=== PATIENT | female | born 1950 | race Hispanic/Latino ===

== ENCOUNTER → 2018-02-27 | Outpatient (CLI) | payer MEDICARE, OTHER | LOC: MAMMO 07:36 | PROVIDERS: ATTEND Internal Medicine Endocrinology, Diabetes & Metabolism | DX: Z12.31 Encounter for screening mammogram for malignant neoplasm of breast (principal) | CPT/HCPCS: 77067 ==

== ENCOUNTER → 2019-03-07 | Outpatient (CLI) | payer MEDICARE, OTHER | LOC: MAMMO 09:36 | PROVIDERS: ATTEND Internal Medicine Endocrinology, Diabetes & Metabolism | DX: Z12.31 Encounter for screening mammogram for malignant neoplasm of breast (principal) | CPT/HCPCS: 77067 ==

== ENCOUNTER → 2019-04-05 | Outpatient (CLI) | payer MEDICARE, OTHER ==
--- NOTE | 2019-04-05 14:04 | Diagnostic Imaging Report ---
Exam: Bone mineral density study. History: 68-year-old postmenopausal female. Comparison: 02/23/2017. Discussion: Evaluation of the left hip and lumbar spine was performed utilizing DEXA Hologic bone densitometer. The study is technically adequate. The patient's fracture risk is compared to an age-matched control. Lumbar spine total bone mineral density: 0.866 gm/cm2, T-score is -1.6, Z-score is 0.5. Increased 4.2% compared to prior exam. Left femoral neck bone mineral density: 0.617 g/cm2, T-score is -2.2, Z-score is -0.4. Decreased 1.3% compared to prior exam. Impression: Bone mineralization by WHO Classification using T score is osteopenic, fracture risk is moderate. <T score: NL = -1 or higher Osteopenia = -1 to -2.5 Osteoporosis = -2.5 or lower Z score: < - 1.5 concerning for path> Recommendations: Medical evaluation for secondary causes of low bone mineral density may be appropriate. Correlate clinically for the necessity and timing of the next bone mineral density study. National Osteoporosis Foundation recommendations: Initiate therapy to reduce fracture risk in postmenopausal women with -BMD t-scores below -2 by central DXA with no risk factors -BMD t-scores below -1.5 by central DXA with one or more risk factors (first deg relative with hip fracture, prior personal fracture, low body weight, smoking) -A prior vertebral or hip fracture AACE (Clinical Endocrinology) recommends treating the following: Postmenopausal women who have osteoporosis as diagnosed by fragility fractures or t scores -2.5 or below Postmenopausal women who have risk factors (including fh of hip fracture, low body weight, smoking, risk of falling, high bone turnover, advancing age) and borderline low BMD T scores of -1.5 or below Adequate intake of calcium (at least 1200mg/day) and vitamin D (400-800 IU/day). Regular weight bearing and muscle - strengthening exercises Avoid smoking and excessive alcohol Signed by: Miah Ross on 04/05/2019 2:00 PM
--- NOTE | 2019-04-08 09:00 | Diagnostic Imaging Report ---
#[id number] - MGDXBIL #BILATERAL DIGITAL DIAGNOSTIC MAMMOGRAM WITH SPOT COMPRESSION: 04/05/2019 Comparison is made to exams dated: 03/07/2019 mammogram and 02/27/2018 mammogram - [facility]. Current study contains 7 films. There are scattered fibroglandular elements in both breasts. Additional views demonstrate no underlying abnormality. No significant masses, calcifications, or other findings are seen in either breast. IMPRESSION: BENIGN There is no mammographic evidence of malignancy. A 1 year screening mammogram is recommended. The patient will be notified by letter of the results. BECK BELTRAN M.D. ct/penrad:04/05/2019 15:37:26 Vortex Operator: Josie OSHEA(Sandro)(M), [facility] letter sent: Normal Exam Mammogram BI-RADS: 2 Benign
== END ==
LOC: DX 11:39
PROVIDERS: ATTEND Internal Medicine Endocrinology, Diabetes & Metabolism
DX: N63.10 Unspecified lump in the right breast, unspecified quadrant (principal); N95.9 Unspecified menopausal and perimenopausal disorder
CPT/HCPCS: 77066; 77080

== ENCOUNTER → 2020-04-10 | Outpatient (CLI) | payer MEDICARE, OTHER | LOC: MAMMO 10:14 | PROVIDERS: ATTEND Internal Medicine Endocrinology, Diabetes & Metabolism | DX: Z12.31 Encounter for screening mammogram for malignant neoplasm of breast (principal) | CPT/HCPCS: 77067 ==

== ENCOUNTER → 2020-05-28 | Outpatient (CLI) | payer MEDICARE, OTHER ==
--- NOTE | 2020-05-28 10:29 | Diagnostic Imaging Report ---
Exam: Bone mineral density study. History: Osteopenia. Comparison: 04/05/2019 Discussion: Evaluation of the left hip and lumbar spine was performed utilizing DEXA Hologic bone densitometer. The study is technically adequate. Left hip total bone mineral density: 0.661gm/cm2, T-score is -2.2, Z-score is -0.6. Left hip femoral neck bone mineral density: 0.631gm/cm2, T-score is -2.1, Z-score is -0.2. Lumbar spine total bone mineral density:0.845gm/cm2, T-score is-1.8, Z-score is 0.4. Impression: 1. Osteopenia of the left hip, fracture risk is increased 2. Osteopenia of the lumbar spine, fracture risk is increased The BMD change versus baseline is 1.0% and the BMD change versus previous 0.8% . Least significant change (LSC) for bone mineral density as provided by pool table operator is 0.023 g/cm2 for lumbar spine and 0.027 g/cm2 for total hip. 10 -year fracture risk per WHO Fracture Risk Assessment Tool (FRAX) for: Major osteoporotic fracture is 6.6% Hip fracture is 1.4% The above fracture probability is calculated for an untreated patient. Fracture probably may be lower if the patient has received treatment. All treatment decisions require clinical judgment and consideration of individual patient factors, including patient preferences, comorbidities, previous drug use and risk factors not captured in the FRAX model (e.g. frailty, falls, vitamin D deficiency, increased bone turnover, interval significant decline in BMD). The patient's fracture risk is compared to an age-matched control. Medical evaluation for secondary causes of low bone bone mineral density may be appropriate. Correlate clinically for the necessity and timing of the next bone mineral density study. Signed by: Dr. Thaddeus Smith M.D. on 05/28/2020 10:26 AM
--- NOTE | 2020-05-29 15:38 | Diagnostic Imaging Report ---
#[id number] - USBRECOMLT ULTRASOUND OF THE LEFT BREAST : 05/28/2020 Comparison is made to exams dated: 05/28/2020 mammogram and 04/10/2020 mammogram - [facility]. Color flow and real-time ultrasound were performed on the left breast. Carter scale images of the real-time examination were reviewed. There is a 1.6 cm irregular mass with a microlobulated margin in the left breast at 2 o'clock anterior depth. This irregular mass is hypoechoic with internal echoes. There also is a 2.1 cm lymph node in the left axillary tail. This lymph node is hypoechoic. IMPRESSION: SUSPICIOUS OF MALIGNANCY - FOLLOW-UP RECOMMENDED The 1.6 cm irregular mass in the left breast at 2 o'clock anterior depth is consistent with a solid mass and is suspicious of malignancy. The 2.1 cm lymph node in the left axillary tail is consistent with an enlarged lymph node and is suspicious of malignancy. A phone call was made to the physician's office. The patient has been or will be contacted. SIM king/morelia:05/29/2020 12:02:50 Heating Element Winder: Mac Knight [facility], [facility] letter sent: Biopsy Required Ultrasound BI-RADS: 4 Suspicious abnormality
--- NOTE | 2020-05-29 15:38 | Diagnostic Imaging Report ---
#[id number] - MGDXLT #UNILATERAL LEFT DIGITAL DIAGNOSTIC MAMMOGRAM WITH SPOT COMPRESSION: 05/28/2020 Comparison is made to exams dated: 04/10/2020 mammogram, 04/05/2019 mammogram, 03/07/2019 mammogram and 02/27/2018 mammogram - [facility]. There are scattered fibroglandular elements in the left breast. There is a 1.2 cm irregular high density mass with an obscured margin in the left breast at 1 o'clock middle depth. No other significant masses or calcifications are seen in the breast. IMPRESSION: INCOMPLETE: NEEDS ADDITIONAL IMAGING EVALUATION The 1.2 cm irregular high density mass in the left breast is indeterminate. Ultrasound will be performed during the same visit for further evaluation. Follow-up with ACR/ACS guidelines. SIM RAMIREZ M.D. kw/:05/29/2020 11:58:25 Infant Room Teacher: Josie OSHEA(Sandro)(M), [facility] Mammogram BI-RADS: 0 Indeterminate
== END ==
LOC: MAMMO 09:16
PROVIDERS: ATTEND Internal Medicine Endocrinology, Diabetes & Metabolism
DX: Z13.820 Encounter for screening for osteoporosis (principal); N63.20 Unspecified lump in the left breast, unspecified quadrant
CPT/HCPCS: 77080

== ENCOUNTER → 2020-06-10 | Outpatient (CLI) | payer MEDICARE, OTHER | LOC: US 14:07 | PROVIDERS: ATTEND Internal Medicine Endocrinology, Diabetes & Metabolism | DX: N63.20 Unspecified lump in the left breast, unspecified quadrant (principal) | CPT/HCPCS: 88305 ==

== ENCOUNTER 2023-02-11 23:30 | Inpatient (IN) | payer MEDICARE, OTHER ==
[~2023-02-11] VITALS: Ht 167.6 cm; Wt 52.3 kg
[2023-02-12] VITALS (40 sets, daily range): BP systolic 114–147; BP diastolic 61–98; PULSE 75–102; RESP 16–25; TEMP 97.7–98.8; O2SAT 96–100
[2023-02-12 00:30] LABS: BASOPHILS # (AUTO) 0.1 (0.0-0.1); BASOPHILS % 0.7 % (0.0-1.0); EOSINOPHILS # (AUTO) 1.4 (0.0-0.4); EOSINOPHILS % 16.6 % (0.0-6.0); HEMATOCRIT 31.3 % (34.2-44.1); HEMOGLOBIN 9.4 g/dL (12.0-16.0); LYMPHOCYTES # (AUTO) 1.7 (1.0-3.2); MEAN CORPUSCULAR HEMOGLOBIN 31.4 pg (28-32); MEAN CORPUSCULAR VOLUME 104.7 fL (81-99); MONOCYTES # (AUTO) 0.5 (0.2-0.8); MONOCYTES % 5.6 % (4.4-11.3); NEUTROPHILS # (AUTO) 4.9 (2.1-6.9); NEUTROPHILS % 56.7 % (38.7-80.0); PLATELET COUNT 218 x10e3/uL (140-360); RED BLOOD COUNT 2.99 x10e6/uL (3.6-5.1); RED CELL DISTRIBUTION WIDTH 22.9 % (11.7-14.4)
[2023-02-12] MEDS ORDERED: SODIUM CHLORIDE 0.9% 1000ML 1,000 ML IV ONE (00:30)
[2023-02-12 00:50] LABS: ALBUMIN 2.4 g/dL (3.5-5.0); ALBUMIN/GLOBULIN RATIO 0.4 (0.8-2.0); ANION GAP 11.9 mmol/L (8-16); CREATININE, SERUM 1.33 mg/dL (0.57-1.11)
[2023-02-12 00:52] LABS: POTASSIUM 6.9 mmol/L (3.5-5.1)
[2023-02-12] MEDS ORDERED: ALBUTEROL SULF 0.083% NEB SOLN 3 ML NEB NEB STA (00:54)
[2023-02-12] MEDS ORDERED: SODIUM BICARBONATE 8.4% 50 ML VIAL IV STA (00:54)
[2023-02-12] MEDS ORDERED: DEXTROSE 50% SYRINGE 50 ML IV STA (00:54)
[2023-02-12] MEDS ORDERED: INSULIN REGULAR, HUMAN 100 UNIT/1 ML IV ONE (01:00)
[2023-02-12] MEDS ORDERED: FUROSEMIDE INJ 10 MG/ML 4 ML VIAL IV ONE (01:00)
[2023-02-12] MEDS ORDERED: CALCIUM GLUCONATE 10% INJ 9.3 MEQ in SODIUM CHLORIDE 0.9% 100 ML IV ONE (01:00)
[2023-02-12] MEDS ORDERED: SODIUM BICARBONATE 8.4% SYRING 100 ML ONE (01:09)
[2023-02-12] MEDS ORDERED: CALCIUM GLUC 1 G/50 ML NACL 50 ML IV ONE ×2 (01:09→01:22)
[2023-02-12] MEDS ORDERED: ONDANSETRON HCL INJ 2MG/ML 2ML 2 MG/ML VIAL IV PRN (01:30)
[2023-02-12] MEDS ORDERED: SODIUM CHLORIDE 0.9% 1000ML 1,000 ML IV SCH (01:30)
[2023-02-12] MEDS ORDERED: ACETAMINOP325 MG/10 PEG (02:42)
[2023-02-12] MEDS ORDERED: heparin SQ (02:42)
[2023-02-12] MEDS ORDERED: AMLODIPINE BESYL5 MG PEG (02:42)
[2023-02-12] MEDS ORDERED: CLONIDINE HCL0.1 MG PEG (02:42)
[2023-02-12] MEDS ORDERED: GABAPENTIN100 MG PEG (02:42)
[2023-02-12] MEDS ORDERED: LANSOPRAZOLE30 MG PEG (02:42)
[2023-02-12] MEDS ORDERED: LEVOTHYROXINE112 MCG PEG (02:42)
[2023-02-12] MEDS ORDERED: IPRAT-ALBUT 0.5-3 ML NEB (02:42)
[2023-02-12] MEDS ORDERED: ALTOPREV40 MG PEG (02:43)
[2023-02-12] MEDS ORDERED: SEROQUEL100 MG PEG (02:47)
[2023-02-12] MEDS ORDERED: ULTRAM 50MG50 MG PEG (02:47)
[2023-02-12] MEDS ORDERED: PROCRIT10000 UNIT INJ (02:47)
[2023-02-12] MEDS ORDERED: SIMVASTATIN20 MG PEG (02:47)
[2023-02-12] MEDS ORDERED: SEROQUEL50 MG PEG (02:47)
[2023-02-12] MEDS ORDERED: METOPROLOL TART50 MG PEG (02:47)
[2023-02-12 04:57] LABS: BASOPHILS # (AUTO) 0.1 (0.0-0.1); BASOPHILS % 0.7 % (0.0-1.0); EOSINOPHILS # (AUTO) 1.3 (0.0-0.4); EOSINOPHILS % 16.4 % (0.0-6.0); HEMATOCRIT 26.5 % (34.2-44.1); HEMOGLOBIN 8.3 g/dL (12.0-16.0); LYMPHOCYTES # (AUTO) 1.4 (1.0-3.2); LYMPHOCYTES % 18.6 % (18.0-39.1); MEAN CORPUSCULAR HEMOGLOBIN 31.4 pg (28-32); MEAN CORPUSCULAR HGB CONC 31.3 g/dL (31-35); MEAN CORPUSCULAR VOLUME 100.4 fL (81-99); MONOCYTES # (AUTO) 0.6 (0.2-0.8); MONOCYTES % 7.6 % (4.4-11.3); NEUTROPHILS # (AUTO) 4.3 (2.1-6.9); NEUTROPHILS % 55.8 % (38.7-80.0); PLATELET COUNT 219 x10e3/uL (140-360); RED BLOOD COUNT 2.64 x10e6/uL (3.6-5.1); RED CELL DISTRIBUTION WIDTH 22.3 % (11.7-14.4)
[2023-02-12 05:25] LABS: ALBUMIN 2.2 g/dL (3.5-5.0); ALBUMIN/GLOBULIN RATIO 0.4 (0.8-2.0); ANION GAP 11.6 mmol/L (8-16); CALCIUM 8.8 mg/dL (8.4-10.2); CREATININE, SERUM 1.06 mg/dL (0.57-1.11); POTASSIUM 5.6 mmol/L (3.5-5.1)
[2023-02-12] MEDS ORDERED: ALBUTEROL/IPRATROPIUM 3 ML NEB NEB PRN (07:45)
[2023-02-12] MEDS ORDERED: CLONIDINE HCL 0.1 MG TAB PEG PRN (07:45)
[2023-02-12] MEDS: LEVOTHYROXINE SODIUM 112 MCG TAB PEG SCH (08:54)
[2023-02-12] MEDS: GABAPENTIN 100 MG CAP PEG SCH ×2 (08:54→17:16)
[2023-02-12] MEDS: AMLODIPINE BESYLATE 5 MG TAB PEG SCH ×2 (08:54→17:16)
[2023-02-12 09:02] LABS: PROTHROMBIN TIME 13.7 seconds (11.9-14.5)
[2023-02-12 09:03] LABS: PARTIAL THROMBOPLASTIN TIME 32.1 seconds (23.8-35.5)
[2023-02-12] MEDS: SODIUM BICARBONATE 8.4% 150 ML in DEXTROSE 5% 1,000 ML IV SCH ×2 (10:17→17:16)
[2023-02-12 15:49] LABS: CALCIUM 8.4 mg/dL (8.4-10.2); CREATININE, SERUM 1.09 mg/dL (0.57-1.11)
[2023-02-12] MEDS ORDERED: SOD POLYSTYRENE SULFONATE SUSP 15 GM/60 ML BTL PO ONE (16:15)
[2023-02-12] MEDS: SIMVASTATIN 20 MG TAB PEG SCH (20:19)
[2023-02-12] MEDS ORDERED: MUPIROCIN 2% OINT 22 GM TUBE TOP SCH (21:00)
[2023-02-12] MEDS ORDERED: SODIUM CHLORIDE 0.9% 100 ML ONE (22:10)
[2023-02-13] VITALS (36 sets, daily range): BP systolic 117–151; BP diastolic 60–75; PULSE 80–105; RESP 14–24; TEMP 97.8–98.8; O2SAT 93–100
[2023-02-13] MEDS ORDERED: SOD POLYSTYRENE SULFONATE SUSP 15 GM/60 ML BTL PO ONE (06:00)
[2023-02-13 06:53] LABS: BASOPHILS % 0.6 % (0.0-1.0); EOSINOPHILS % 13.5 % (0.0-6.0); HEMATOCRIT 28.1 % (34.2-44.1); HEMOGLOBIN 8.6 g/dL (12.0-16.0); LYMPHOCYTES # (AUTO) 1.1 (1.0-3.2); LYMPHOCYTES % 15.6 % (18.0-39.1); MEAN CORPUSCULAR HEMOGLOBIN 31.7 pg (28-32); MEAN CORPUSCULAR HGB CONC 30.6 g/dL (31-35); MEAN CORPUSCULAR VOLUME 103.7 fL (81-99); MONOCYTES # (AUTO) 0.5 (0.2-0.8); MONOCYTES % 7.3 % (4.4-11.3); NEUTROPHILS # (AUTO) 4.5 (2.1-6.9); NEUTROPHILS % 62.3 % (38.7-80.0); PLATELET COUNT 201 x10e3/uL (140-360); RED BLOOD COUNT 2.71 x10e6/uL (3.6-5.1); RED CELL DISTRIBUTION WIDTH 22.8 % (11.7-14.4)
[2023-02-13 07:20] LABS: ALBUMIN 2.1 g/dL (3.5-5.0); ALBUMIN/GLOBULIN RATIO 0.4 (0.8-2.0); ANION GAP 11.7 mmol/L (8-16); CALCIUM 8.3 mg/dL (8.4-10.2); CREATININE, SERUM 1.08 mg/dL (0.57-1.11); POTASSIUM 5.7 mmol/L (3.5-5.1)
[2023-02-13] MEDS: LEVOTHYROXINE SODIUM 112 MCG TAB PEG SCH (09:53)
[2023-02-13] MEDS: AMLODIPINE BESYLATE 5 MG TAB PEG SCH ×2 (09:53→16:49)
[2023-02-13] MEDS: GABAPENTIN 100 MG CAP PEG SCH ×2 (09:54→16:48)
[2023-02-13] MEDS: SODIUM BICARBONATE 8.4% 150 ML in DEXTROSE 5% 1,000 ML IV SCH ×2 (09:55→11:36)
[2023-02-13] MEDS ORDERED: FUROSEMIDE INJ 10 MG/ML 2 ML VIAL IV ONE (15:00)
[2023-02-13 15:44] LABS: ABG HCO3 25 mmol/L (22-26); ABG PCO2 37 mmHg (35-45); ABG PH 7.45 (7.35-7.45); ABG PO2 85 mmHg (80-105); ABG TCO2 26
[2023-02-13] MEDS: HEPARIN SOD (PORCINE) 5,000 UNIT/ML VIAL SC SCH ×2 (16:31→20:12)
[2023-02-13] MEDS ORDERED: SODIUM BICARBONATE 8.4% 150 ML in DEXTROSE 5% 1,000 ML IV SCH (19:00)
[2023-02-13] MEDS: SODIUM CHLORIDE 0.9% 1000ML 1,000 ML IV SCH (19:13)
[2023-02-13] MEDS: SIMVASTATIN 20 MG TAB PEG SCH (20:07)
[2023-02-14] VITALS (19 sets, daily range): BP systolic 122–153; BP diastolic 60–110; PULSE 81–103; RESP 15–24; TEMP 98–98.6; O2SAT 92–100
[2023-02-14] MEDS: SODIUM CHLORIDE 0.9% 1000ML 1,000 ML IV SCH ×2 (05:35→20:57)
[2023-02-14 06:48] LABS: BASOPHILS % 0.5 % (0.0-1.0); EOSINOPHILS # (AUTO) 1.1 (0.0-0.4); EOSINOPHILS % 13.5 % (0.0-6.0); HEMATOCRIT 24.3 % (34.2-44.1); LYMPHOCYTES # (AUTO) 1.2 (1.0-3.2); LYMPHOCYTES % 15.1 % (18.0-39.1); MEAN CORPUSCULAR HEMOGLOBIN 32.5 pg (28-32); MEAN CORPUSCULAR HGB CONC 31.3 g/dL (31-35); MEAN CORPUSCULAR VOLUME 103.8 fL (81-99); MONOCYTES # (AUTO) 0.6 (0.2-0.8); MONOCYTES % 7.4 % (4.4-11.3); PLATELET COUNT 205 x10e3/uL (140-360); RED BLOOD COUNT 2.34 x10e6/uL (3.6-5.1); RED CELL DISTRIBUTION WIDTH 22.7 % (11.7-14.4)
[2023-02-14 06:57] LABS: HEMOGLOBIN 7.6 g/dL (12.0-16.0)
[2023-02-14 07:14] LABS: ALBUMIN/GLOBULIN RATIO 0.4 (0.8-2.0); ANION GAP 10.8 mmol/L (8-16); CALCIUM 7.9 mg/dL (8.4-10.2); CREATININE, SERUM 0.97 mg/dL (0.57-1.11); POTASSIUM 5.8 mmol/L (3.5-5.1)
[2023-02-14 07:29] LABS: MAGNESIUM 1.8 MG/DL (1.3-2.1); PHOSPHORUS 4.1 MG/DL (2.3-4.7)
[2023-02-14] MEDS: LEVOTHYROXINE SODIUM 112 MCG TAB PEG SCH (07:49)
[2023-02-14] MEDS ORDERED: SOD POLYSTYRENE SULFONATE SUSP 15 GM/60 ML BTL PO ONE (08:15)
[2023-02-14 08:58] LABS: FREE T4 (FREE THYROXINE) 0.6 ng/dL (0.8-1.8); THYROID STIMULATING HORMONE 54.359 uIU/mL (0.350-4.940)
[2023-02-14] MEDS: GABAPENTIN 100 MG CAP PEG SCH ×2 (09:20→17:39)
[2023-02-14] MEDS: AMLODIPINE BESYLATE 5 MG TAB PEG SCH ×2 (09:20→17:38)
[2023-02-14] MEDS: ACETAMINOPHEN 325 MG TAB PO PRN ×2 (09:21→20:05)
[2023-02-14] MEDS: HEPARIN SOD (PORCINE) 5,000 UNIT/ML VIAL SC SCH ×2 (09:22→20:05)
[2023-02-14] MEDS: BALSAM PERU/CASTOR OIL 60 GM OINT...G. TP SCH (09:24)
[2023-02-14] MEDS: IRON SUCROSE 100 MG in SODIUM CHLORIDE 0.9% 100 ML IV SCH (10:45)
[2023-02-14] MEDS: SIMVASTATIN 20 MG TAB PEG SCH (20:05)
[2023-02-15] VITALS (17 sets, daily range): BP systolic 123–151; BP diastolic 59–77; PULSE 84–104; RESP 16–22; TEMP 98–98.4; O2SAT 94–100
[2023-02-15 06:44] LABS: BASOPHILS % 0.6 % (0.0-1.0); EOSINOPHILS # (AUTO) 1.1 (0.0-0.4); EOSINOPHILS % 15.6 % (0.0-6.0); HEMATOCRIT 24.3 % (34.2-44.1); HEMOGLOBIN 7.5 g/dL (12.0-16.0); LYMPHOCYTES # (AUTO) 0.9 (1.0-3.2); LYMPHOCYTES % 12.5 % (18.0-39.1); MEAN CORPUSCULAR HEMOGLOBIN 32.5 pg (28-32); MEAN CORPUSCULAR HGB CONC 30.9 g/dL (31-35); MEAN CORPUSCULAR VOLUME 105.2 fL (81-99); MONOCYTES # (AUTO) 0.5 (0.2-0.8); NEUTROPHILS # (AUTO) 4.5 (2.1-6.9); NEUTROPHILS % 63.7 % (38.7-80.0); PLATELET COUNT 178 x10e3/uL (140-360); RED BLOOD COUNT 2.31 x10e6/uL (3.6-5.1); RED CELL DISTRIBUTION WIDTH 22.6 % (11.7-14.4)
[2023-02-15 07:03] LABS: ALBUMIN/GLOBULIN RATIO 0.4 (0.8-2.0); ANION GAP 10.1 mmol/L (8-16); CALCIUM 7.7 mg/dL (8.4-10.2); CREATININE, SERUM 0.83 mg/dL (0.57-1.11); POTASSIUM 5.1 mmol/L (3.5-5.1)
[2023-02-15] MEDS: BALSAM PERU/CASTOR OIL 60 GM OINT...G. TP SCH (08:08)
[2023-02-15] MEDS: SODIUM CHLORIDE 0.9% 1000ML 1,000 ML IV SCH (08:08)
[2023-02-15] MEDS: GABAPENTIN 100 MG CAP PEG SCH ×2 (08:08→17:34)
[2023-02-15] MEDS: AMLODIPINE BESYLATE 5 MG TAB PEG SCH ×2 (08:08→17:34)
[2023-02-15] MEDS: HEPARIN SOD (PORCINE) 5,000 UNIT/ML VIAL SC SCH ×2 (08:09→21:33)
[2023-02-15] MEDS: IRON SUCROSE 100 MG in SODIUM CHLORIDE 0.9% 100 ML IV SCH (12:55)
[2023-02-15] MEDS: MINERAL OIL/PETROLAT/GLYCERI 8OZ LOTN TOP SCH (17:35)
[2023-02-15] MEDS ORDERED: TRAMADOL HCL 50 MG TAB PEG PRN (19:45)
[2023-02-15] MEDS: SIMVASTATIN 20 MG TAB PEG SCH (21:24)
[2023-02-15] MEDS: QUETIAPINE FUMARATE 100 MG TAB PEG SCH (21:24)
[2023-02-16] VITALS (48 sets, daily range): BP systolic 123–161; BP diastolic 63–80; PULSE 89–119; RESP 13–28; TEMP 97.9–98.7; O2SAT 96–100
[2023-02-16 06:10] LABS: BASOPHILS % 0.3 % (0.0-1.0); EOSINOPHILS # (AUTO) 0.8 (0.0-0.4); EOSINOPHILS % 12.3 % (0.0-6.0); HEMATOCRIT 24.4 % (34.2-44.1); HEMOGLOBIN 7.4 g/dL (12.0-16.0); LYMPHOCYTES # (AUTO) 1.2 (1.0-3.2); LYMPHOCYTES % 17.8 % (18.0-39.1); MEAN CORPUSCULAR HEMOGLOBIN 31.9 pg (28-32); MEAN CORPUSCULAR HGB CONC 30.3 g/dL (31-35); MEAN CORPUSCULAR VOLUME 105.2 fL (81-99); MONOCYTES # (AUTO) 0.4 (0.2-0.8); MONOCYTES % 6.5 % (4.4-11.3); NEUTROPHILS # (AUTO) 4.1 (2.1-6.9); NEUTROPHILS % 62.5 % (38.7-80.0); PLATELET COUNT 153 x10e3/uL (140-360); RED BLOOD COUNT 2.32 x10e6/uL (3.6-5.1); RED CELL DISTRIBUTION WIDTH 22.1 % (11.7-14.4)
[2023-02-16] MEDS: LEVOTHYROXINE SODIUM 75 MCG TAB PO SCH ×2 (06:11→06:13)
[2023-02-16 06:30] LABS: ALBUMIN/GLOBULIN RATIO 0.4 (0.8-2.0); ANION GAP 10.1 mmol/L (8-16); CREATININE, SERUM 0.95 mg/dL (0.57-1.11)
[2023-02-16 06:37] LABS: POTASSIUM 6.1 mmol/L (3.5-5.1)
[2023-02-16 08:26] LABS: ANION GAP 12.2 mmol/L (8-16); CALCIUM 8.1 mg/dL (8.4-10.2); CREATININE, SERUM 0.94 mg/dL (0.57-1.11)
[2023-02-16 08:34] LABS: POTASSIUM 6.2 mmol/L (3.5-5.1)
[2023-02-16] MEDS: GABAPENTIN 100 MG CAP PEG SCH ×2 (08:50→17:21)
[2023-02-16] MEDS: AMLODIPINE BESYLATE 5 MG TAB PEG SCH ×2 (08:50→17:21)
[2023-02-16] MEDS: QUETIAPINE FUMARATE 25 MG TAB PEG SCH (08:51)
[2023-02-16] MEDS: EPOETIN ALFA-EPBX 10,000 UNIT/ML VIAL SC SCH (08:53)
[2023-02-16] MEDS: HEPARIN SOD (PORCINE) 5,000 UNIT/ML VIAL SC SCH ×2 (08:53→20:45)
[2023-02-16] MEDS: BALSAM PERU/CASTOR OIL 60 GM OINT...G. TP SCH (08:54)
[2023-02-16] MEDS: MINERAL OIL/PETROLAT/GLYCERI 8OZ LOTN TOP SCH ×2 (08:55→17:22)
[2023-02-16 09:10] LABS: EOSINOPHILS % (MANUAL) 2 % (0-7); LYMPHOCYTES % (MANUAL) 18 % (19-48); MONOCYTES % (MANUAL) 1 % (3.4-9.0); MYELOCYTES % (MANUAL) 1 % (0-0); NEUTROPHILS % (MANUAL) 78 % (40-74); PLATELET ESTIMATE ADEQUATE; PLATELET MORPHOLOGY COMMENT NORMAL; RBC MORPHOLOGY COMMENT NORMAL
[2023-02-16] MEDS ORDERED: SODIUM BICARBONATE 8.4% 150 ML in DEXTROSE 5% 1,000 ML IV SCH (10:00)
[2023-02-16] MEDS ORDERED: CALCIUM CHLORIDE 13.6 MEQ in SODIUM CHLORIDE 0.9% 100 ML IV ONE (10:30)
[2023-02-16] MEDS ORDERED: SOD POLYSTYRENE SULFONATE SUSP 15 GM/60 ML BTL PO ONE (10:30)
[2023-02-16] MEDS ORDERED: FUROSEMIDE INJ 10 MG/ML 4 ML VIAL IV ONE (10:30)
[2023-02-16] MEDS ORDERED: DEXTROSE 50% SYRINGE 50 ML IV ONE (10:30)
[2023-02-16] MEDS ORDERED: INSULIN REGULAR, HUMAN 100 UNIT/1 ML IV ONE (10:30)
[2023-02-16] MEDS ORDERED: DEXTROSE 5% 0 ML IV ONE (10:38)
[2023-02-16] MEDS: IRON SUCROSE 100 MG in SODIUM CHLORIDE 0.9% 100 ML IV SCH (12:13)
[2023-02-16] MEDS: SODIUM BICARBONATE 8.4% 150 ML in DEXTROSE 5% 1,000 ML IV SCH ×2 (13:31→23:25)
[2023-02-16 16:26] LABS: ANION GAP 10.3 mmol/L (8-16); CALCIUM 9.3 mg/dL (8.4-10.2); CREATININE, SERUM 0.98 mg/dL (0.57-1.11); POTASSIUM 5.3 mmol/L (3.5-5.1)
[2023-02-16] MEDS ORDERED: SODIUM BICARBONATE 650 MG TAB PEG SCH (17:00)
[2023-02-16] MEDS: SIMVASTATIN 20 MG TAB PEG SCH (20:44)
[2023-02-16] MEDS: QUETIAPINE FUMARATE 100 MG TAB PEG SCH (20:44)
[2023-02-17] VITALS (28 sets, daily range): BP systolic 116–144; BP diastolic 56–75; PULSE 99–122; RESP 17–25; TEMP 98.2–100.1; O2SAT 95–100
[2023-02-17] MEDS ORDERED: PIPERACILLIN/TAZOBACTAM 3.375 GM VIAL ONE (05:14)
[2023-02-17] MEDS: LEVOTHYROXINE SODIUM 75 MCG TAB PO SCH (06:03)
[2023-02-17 08:50] LABS: ALBUMIN 1.9 g/dL (3.5-5.0); ALBUMIN/GLOBULIN RATIO 0.4 (0.8-2.0); ANION GAP 12.5 mmol/L (8-16); CALCIUM 8.1 mg/dL (8.4-10.2); CREATININE, SERUM 1.07 mg/dL (0.57-1.11); POTASSIUM 4.5 mmol/L (3.5-5.1)
[2023-02-17] MEDS: MINERAL OIL/PETROLAT/GLYCERI 8OZ LOTN TOP SCH ×2 (09:00→17:00)
[2023-02-17] MEDS: BALSAM PERU/CASTOR OIL 60 GM OINT...G. TP SCH (09:00)
[2023-02-17] MEDS: AMLODIPINE BESYLATE 5 MG TAB PEG SCH ×2 (09:40→17:20)
[2023-02-17] MEDS: GABAPENTIN 100 MG CAP PEG SCH ×2 (09:40→17:20)
[2023-02-17] MEDS: QUETIAPINE FUMARATE 25 MG TAB PEG SCH (09:43)
[2023-02-17] MEDS: PSYLLIUM 6GM PACKET PO SCH (09:43)
[2023-02-17] MEDS: EPOETIN ALFA-EPBX 10,000 UNIT/ML VIAL SC SCH (09:46)
[2023-02-17] MEDS: HEPARIN SOD (PORCINE) 5,000 UNIT/ML VIAL SC SCH ×2 (09:46→21:00)
[2023-02-17] MEDS: SODIUM BICARBONATE 8.4% 150 ML in DEXTROSE 5% 1,000 ML IV SCH ×2 (11:50→22:56)
[2023-02-17] MEDS: IRON SUCROSE 100 MG in SODIUM CHLORIDE 0.9% 100 ML IV SCH (11:50)
[2023-02-17] MEDS: SIMVASTATIN 20 MG TAB PEG SCH (21:00)
[2023-02-17] MEDS: QUETIAPINE FUMARATE 100 MG TAB PEG SCH (21:00)
[2023-02-18] VITALS (17 sets, daily range): BP systolic 97–128; BP diastolic 49–90; PULSE 98–109; RESP 11–25; TEMP 98.2–98.8; O2SAT 96–100
[2023-02-18] MEDS: LEVOTHYROXINE SODIUM 75 MCG TAB PO SCH (06:18)
[2023-02-18 06:38] LABS: BASOPHILS % 0.2 % (0.0-1.0); EOSINOPHILS # (AUTO) 0.6 (0.0-0.4); EOSINOPHILS % 9.6 % (0.0-6.0); HEMATOCRIT 22.4 % (34.2-44.1); LYMPHOCYTES % 16.2 % (18.0-39.1); MEAN CORPUSCULAR HEMOGLOBIN 31.7 pg (28-32); MEAN CORPUSCULAR HGB CONC 31.3 g/dL (31-35); MEAN CORPUSCULAR VOLUME 101.4 fL (81-99); MONOCYTES # (AUTO) 0.4 (0.2-0.8); MONOCYTES % 6.1 % (4.4-11.3); NEUTROPHILS # (AUTO) 4.1 (2.1-6.9); NEUTROPHILS % 67.4 % (38.7-80.0); PLATELET COUNT 115 x10e3/uL (140-360); RED BLOOD COUNT 2.21 x10e6/uL (3.6-5.1); RED CELL DISTRIBUTION WIDTH 21.9 % (11.7-14.4)
[2023-02-18 07:02] LABS: ALBUMIN 1.8 g/dL (3.5-5.0); ALBUMIN/GLOBULIN RATIO 0.4 (0.8-2.0); ANION GAP 12.2 mmol/L (8-16); CALCIUM 8.1 mg/dL (8.4-10.2); CREATININE, SERUM 1.16 mg/dL (0.57-1.11); POTASSIUM 4.2 mmol/L (3.5-5.1)
[2023-02-18] MEDS: BALSAM PERU/CASTOR OIL 60 GM OINT...G. TP SCH (09:00)
[2023-02-18] MEDS: SODIUM CHLORIDE 0.9% 1000ML 1,000 ML IV SCH ×2 (09:27→19:43)
[2023-02-18] MEDS: EPOETIN ALFA-EPBX 10,000 UNIT/ML VIAL SC SCH (09:27)
[2023-02-18] MEDS: HEPARIN SOD (PORCINE) 5,000 UNIT/ML VIAL SC SCH ×2 (09:28→20:30)
[2023-02-18] MEDS: QUETIAPINE FUMARATE 25 MG TAB PEG SCH (09:29)
[2023-02-18] MEDS: SODIUM BICARBONATE 650 MG TAB PO SCH ×2 (09:29→16:49)
[2023-02-18] MEDS: GABAPENTIN 100 MG CAP PEG SCH ×2 (09:30→16:49)
[2023-02-18] MEDS: PSYLLIUM 6GM PACKET PO SCH (09:30)
[2023-02-18] MEDS: AMLODIPINE BESYLATE 5 MG TAB PEG SCH ×2 (09:30→16:49)
[2023-02-18 09:59] LABS: FERRITIN 998.42 ng/mL (4.63-204.00)
[2023-02-18] MEDS: MINERAL OIL/PETROLAT/GLYCERI 8OZ LOTN TOP SCH ×2 (10:38→17:00)
[2023-02-18] MEDS: IRON SUCROSE 100 MG in SODIUM CHLORIDE 0.9% 100 ML IV SCH (13:07)
[2023-02-18] MEDS: ACETAMINOPHEN 325 MG TAB PO PRN (20:28)
[2023-02-18] MEDS: QUETIAPINE FUMARATE 100 MG TAB PEG SCH (20:29)
[2023-02-18] MEDS: SIMVASTATIN 20 MG TAB PEG SCH (20:29)
[2023-02-19] VITALS (16 sets, daily range): BP systolic 115–156; BP diastolic 57–73; PULSE 81–103; RESP 16–22; TEMP 97.9–98.6; O2SAT 96–100
[2023-02-19] MEDS: LEVOTHYROXINE SODIUM 75 MCG TAB PO SCH (05:43)
[2023-02-19 06:41] LABS: BASOPHILS % 0.3 % (0.0-1.0); EOSINOPHILS # (AUTO) 0.7 (0.0-0.4); EOSINOPHILS % 10.4 % (0.0-6.0); LYMPHOCYTES # (AUTO) 0.8 (1.0-3.2); LYMPHOCYTES % 11.1 % (18.0-39.1); MEAN CORPUSCULAR HEMOGLOBIN 31.6 pg (28-32); MEAN CORPUSCULAR HGB CONC 30.7 g/dL (31-35); MEAN CORPUSCULAR VOLUME 102.8 fL (81-99); MONOCYTES # (AUTO) 0.5 (0.2-0.8); MONOCYTES % 7.7 % (4.4-11.3); NEUTROPHILS # (AUTO) 4.8 (2.1-6.9); NEUTROPHILS % 69.5 % (38.7-80.0); PLATELET COUNT 111 x10e3/uL (140-360); RED BLOOD COUNT 2.12 x10e6/uL (3.6-5.1)
[2023-02-19 06:53] LABS: HEMOGLOBIN 6.8 g/dL (12.0-16.0)
[2023-02-19 07:11] LABS: ALBUMIN 1.8 g/dL (3.5-5.0); ALBUMIN/GLOBULIN RATIO 0.4 (0.8-2.0); ANION GAP 11.7 mmol/L (8-16); CREATININE, SERUM 1.06 mg/dL (0.57-1.11); POTASSIUM 4.7 mmol/L (3.5-5.1)
[2023-02-19] MEDS: AMLODIPINE BESYLATE 5 MG TAB PEG SCH ×2 (09:58→16:40)
[2023-02-19] MEDS: GABAPENTIN 100 MG CAP PEG SCH ×2 (09:59→16:40)
[2023-02-19] MEDS: QUETIAPINE FUMARATE 25 MG TAB PEG SCH (09:59)
[2023-02-19] MEDS: EPOETIN ALFA-EPBX 10,000 UNIT/ML VIAL SC SCH (09:59)
[2023-02-19] MEDS: SODIUM BICARBONATE 650 MG TAB PO SCH (09:59)
[2023-02-19] MEDS: MINERAL OIL/PETROLAT/GLYCERI 8OZ LOTN TOP SCH ×2 (10:01→16:40)
[2023-02-19] MEDS: BALSAM PERU/CASTOR OIL 60 GM OINT...G. TP SCH (10:02)
[2023-02-19] MEDS: CHOLESTYRAMINE 4 GM PACKET PO SCH ×2 (10:03→16:40)
[2023-02-19] MEDS: PSYLLIUM 6GM PACKET PO SCH (10:50)
[2023-02-19] MEDS: HEPARIN SOD (PORCINE) 5,000 UNIT/ML VIAL SC SCH ×2 (10:50→20:54)
[2023-02-19] MEDS ORDERED: SODIUM CHLORIDE 0.9% 250ML 250 ML IV ONE (11:15)
[2023-02-19] MEDS ORDERED: CYANOCOBALAMIN INJ 1,000 MCG/ML VIAL IM ONE (12:00)
[2023-02-19] MEDS ORDERED: LOPERAMIDE HCL 2 MG/15 ML UDC PEG STA (13:51)
[2023-02-19] MEDS: ACETAMINOPHEN 325 MG TAB PO PRN (14:06)
[2023-02-19 14:26] LABS: ALBUMIN 1.9 g/dL (3.5-5.0); ALBUMIN/GLOBULIN RATIO 0.4 (0.8-2.0); ANION GAP 12.7 mmol/L (8-16); CALCIUM 8.3 mg/dL (8.4-10.2); CREATININE, SERUM 1.01 mg/dL (0.57-1.11); POTASSIUM 4.7 mmol/L (3.5-5.1)
[2023-02-19] MEDS: QUETIAPINE FUMARATE 100 MG TAB PEG SCH (20:50)
[2023-02-19] MEDS: SIMVASTATIN 20 MG TAB PEG SCH (20:57)
[2023-02-19] MEDS ORDERED: SODIUM CHLORIDE 0.9% 250ML 250 ML ONE (22:31)
[2023-02-20] VITALS (7 sets, daily range): BP systolic 135–150; BP diastolic 71–88; PULSE 78–102; RESP 18–20; TEMP 97.1–99.1; O2SAT 98–100
[2023-02-20] MEDS: LEVOTHYROXINE SODIUM 75 MCG TAB PO SCH (05:05)
[2023-02-20 06:37] LABS: BASOPHILS % 0.2 % (0.0-1.0); EOSINOPHILS # (AUTO) 0.9 (0.0-0.4); EOSINOPHILS % 10.9 % (0.0-6.0); HEMATOCRIT 26.7 % (34.2-44.1); HEMOGLOBIN 8.4 g/dL (12.0-16.0); LYMPHOCYTES % 11.9 % (18.0-39.1); MEAN CORPUSCULAR HEMOGLOBIN 31.8 pg (28-32); MEAN CORPUSCULAR HGB CONC 31.5 g/dL (31-35); MEAN CORPUSCULAR VOLUME 101.1 fL (81-99); MONOCYTES # (AUTO) 0.5 (0.2-0.8); MONOCYTES % 6.2 % (4.4-11.3); NEUTROPHILS # (AUTO) 5.6 (2.1-6.9); NEUTROPHILS % 69.7 % (38.7-80.0); PLATELET COUNT 102 x10e3/uL (140-360); RED BLOOD COUNT 2.64 x10e6/uL (3.6-5.1); RED CELL DISTRIBUTION WIDTH 21.5 % (11.7-14.4)
[2023-02-20 07:39] LABS: ALBUMIN/GLOBULIN RATIO 0.4 (0.8-2.0); ANION GAP 9.7 mmol/L (8-16); CALCIUM 8.4 mg/dL (8.4-10.2); CREATININE, SERUM 1.03 mg/dL (0.57-1.11); POTASSIUM 4.7 mmol/L (3.5-5.1)
[2023-02-20] MEDS: PSYLLIUM 6GM PACKET PO SCH (09:00)
[2023-02-20] MEDS ORDERED: LOPERAMIDE HCL 2 MG/15 ML UDC PEG SCH (09:00)
[2023-02-20] MEDS: QUETIAPINE FUMARATE 25 MG TAB PEG SCH (09:53)
[2023-02-20] MEDS: GABAPENTIN 100 MG CAP PEG SCH ×2 (09:53→17:00)
[2023-02-20] MEDS: AMLODIPINE BESYLATE 5 MG TAB PEG SCH ×2 (09:54→17:00)
[2023-02-20] MEDS: EPOETIN ALFA-EPBX 10,000 UNIT/ML VIAL SC SCH (09:55)
[2023-02-20] MEDS: MINERAL OIL/PETROLAT/GLYCERI 8OZ LOTN TOP SCH ×2 (09:56→17:00)
[2023-02-20] MEDS: BALSAM PERU/CASTOR OIL 60 GM OINT...G. TP SCH (09:57)
[2023-02-20] MEDS: CHOLESTYRAMINE 4 GM PACKET PO SCH ×2 (10:00→15:00)
[2023-02-20] MEDS: HEPARIN SOD (PORCINE) 5,000 UNIT/ML VIAL SC SCH (10:10)
[2023-02-20] MEDS ORDERED: ONDANSETRON HCL 4 MG ORAL DISINTEGRATING TAB PO PRN (15:15)
== END 2023-02-20 18:00 | DRG 683 ==
LOC: ER 23:40 → ERHOLD 02-12 01:28 → ICU 02-12 02:26 → MED/SURG3 02-19 17:05
PROVIDERS: ADMIT Internal Medicine; ATTEND Internal Medicine
PROC: 02HV33Z Insertion of Infusion Device into Superior Vena Cava, Percutaneous Approach (ICD-10-PCS; principal; 2023-02-13)
PROC: B548ZZA Ultrasonography of Superior Vena Cava, Guidance (ICD-10-PCS; 2023-02-13)
PROC: 30233N1 Transfusion of Nonautologous Red Blood Cells into Peripheral Vein, Percutaneous Approach (ICD-10-PCS; 2023-02-19)
DX: N17.9 Acute kidney failure, unspecified (principal); E87.20 Acidosis, unspecified; K76.6 Portal hypertension; E87.5 Hyperkalemia; K74.60 Unspecified cirrhosis of liver; M32.9 Systemic lupus erythematosus, unspecified; I10 Essential (primary) hypertension; E03.9 Hypothyroidism, unspecified; D50.9 Iron deficiency anemia, unspecified; R16.1 Splenomegaly, not elsewhere classified; K57.30 Diverticulosis of large intestine without perforation or abscess without bleeding; N20.0 Calculus of kidney; D69.6 Thrombocytopenia, unspecified; Z93.2 Ileostomy status; Z93.1 Gastrostomy status; Z20.822 Contact with and (suspected) exposure to COVID-19
CPT/HCPCS: 36415; 36569; 36600; 71045; 74176; 80048; 80053; 82140; 82607; 82728; 82805; 83540; 83735; 84100; 84132; 84439; 84443; 84466; 85025; 85045; 85610; 85730; 86039; 86850; 86900; 86920; 93005; 94799; 99252; 99284; J0612; J1644; J1756; J1940; J2543; J3420; J7030; J7050; J7070; J7799; P9016

== ENCOUNTER 2023-02-28 19:25 | Inpatient (IN) | payer MEDICARE, OTHER ==
[2023-02-27 21:45] VITALS: PULSE 92; RESP 20; O2SAT 100
[~2023-02-28] VITALS: Ht 157.5 cm; Wt 59.1 kg
[~2023-02-28 19:25] MED LIST: ACETAMINOP325 MG/10 PEG; ALTOPREV40 MG PEG; AMLODIPINE BESYL5 MG PEG; CLONIDINE HCL0.1 MG PEG; GABAPENTIN100 MG PEG; IPRAT-ALBUT 0.5-3 ML NEB; LANSOPRAZOLE30 MG PEG; LEVOTHYROXINE112 MCG PEG; METOPROLOL TART50 MG PEG; PROCRIT10000 UNIT INJ; SEROQUEL100 MG PEG; SEROQUEL50 MG PEG; SIMVASTATIN20 MG PEG; ULTRAM 50MG50 MG PEG; heparin SQ
[2023-02-28 20:07] LABS: BASOPHILS % 0.1 % (0.0-1.0); EOSINOPHILS # (AUTO) 0.5 (0.0-0.4); EOSINOPHILS % 6.1 % (0.0-6.0); HEMATOCRIT 33.5 % (34.2-44.1); HEMOGLOBIN 10.5 g/dL (12.0-16.0); LYMPHOCYTES # (AUTO) 1.4 (1.0-3.2); LYMPHOCYTES % 18.5 % (18.0-39.1); MEAN CORPUSCULAR HEMOGLOBIN 32.5 pg (28-32); MEAN CORPUSCULAR HGB CONC 31.3 g/dL (31-35); MEAN CORPUSCULAR VOLUME 103.7 fL (81-99); MONOCYTES # (AUTO) 0.5 (0.2-0.8); MONOCYTES % 7.1 % (4.4-11.3); NEUTROPHILS % 67.7 % (38.7-80.0); PLATELET COUNT 144 x10e3/uL (140-360); RED BLOOD COUNT 3.23 x10e6/uL (3.6-5.1); RED CELL DISTRIBUTION WIDTH 20.8 % (11.7-14.4)
[2023-02-28 20:27] LABS: ALANINE AMINOTRANSFERASE 27 IU/L (0-55); ALBUMIN 2.6 g/dL (3.5-5.0); ALBUMIN/GLOBULIN RATIO 0.4 (0.8-2.0); ALKALINE PHOSPHATASE 571 IU/L (40-150); ANION GAP 13.7 mmol/L (8-16); BLOOD UREA NITROGEN 58 mg/dL (7-26); BUN/CREATININE RATIO 46 (6-25); CALCIUM 10.4 mg/dL (8.4-10.2); CARBON DIOXIDE 13 mmol/L (22-29); CHLORIDE 114 mmol/L (98-107); CREATININE, SERUM 1.27 mg/dL (0.57-1.11); GLUCOSE 112 mg/dL (74-118); SODIUM 133 mmol/L (136-145)
[2023-02-28 20:30] LABS: CREATINE KINASE < 7 IU/L (29-168)
[2023-02-28 20:32] LABS: POTASSIUM 7.7 mmol/L (3.5-5.1)
[2023-02-28] MEDS ORDERED: CALCIUM GLUCONATE 10% INJ 0.465 MEQ/ML VIAL IV STA (20:32)
[2023-02-28] MEDS ORDERED: DEXTROSE 50% SYRINGE 50 ML IV STA (20:32)
[2023-02-28] MEDS ORDERED: ALBUTEROL SULF 0.083% NEB SOLN 3 ML NEB NEB STA (20:32)
[2023-02-28] MEDS ORDERED: SODIUM BICARBONATE 8.4% INJ 50 ML SYR IV STA (20:32)
[2023-02-28] MEDS ORDERED: SODIUM CHLORIDE 0.9% 1000ML 1,000 ML IV STA (20:38)
[2023-02-28] MEDS ORDERED: INSULIN REGULAR, HUMAN 100 UNIT/1 ML IV ONE (20:45)
[2023-02-28] MEDS ORDERED: DEXTROSE 50% SYRINGE 50 ML IV ONE (20:45)
[2023-02-28] MEDS ORDERED: FUROSEMIDE INJ 10 MG/ML 10 ML VIAL IV ONE (20:45)
[2023-02-28] MEDS ORDERED: CALCIUM GLUC 1 G/50 ML NACL 50 ML IV ONE ×2 (20:51→21:00)
[2023-02-28 21:10] VITALS: PULSE 80; RESP 18; O2SAT 98
[2023-02-28 21:45] VITALS: PULSE 92; RESP 20; O2SAT 100
[2023-03-01] VITALS (11 sets, daily range): BP systolic 122–151; BP diastolic 51–81; PULSE 74–97; RESP 16–20; TEMP 97.6–98.4; O2SAT 95–100
[2023-03-01 00:08] LABS: ALBUMIN 2.4 g/dL (3.5-5.0); ALBUMIN/GLOBULIN RATIO 0.4 (0.8-2.0); ANION GAP 13.7 mmol/L (8-16); CREATININE, SERUM 1.15 mg/dL (0.57-1.11)
[2023-03-01 00:09] LABS: POTASSIUM 5.7 mmol/L (3.5-5.1)
[2023-03-01] MEDS: SODIUM CHLORIDE 0.9% 1000ML 1,000 ML IV SCH ×4 (02:16→20:31)
[2023-03-01] MEDS ORDERED: SODIUM BICARBO650 MG PO (03:13)
[2023-03-01 06:23] LABS: BASOPHILS % 0.3 % (0.0-1.0); EOSINOPHILS # (AUTO) 0.4 (0.0-0.4); EOSINOPHILS % 6.3 % (0.0-6.0); HEMATOCRIT 28.9 % (34.2-44.1); LYMPHOCYTES % 15.7 % (18.0-39.1); MEAN CORPUSCULAR HEMOGLOBIN 32.3 pg (28-32); MEAN CORPUSCULAR HGB CONC 31.1 g/dL (31-35); MEAN CORPUSCULAR VOLUME 103.6 fL (81-99); MONOCYTES # (AUTO) 0.5 (0.2-0.8); MONOCYTES % 7.3 % (4.4-11.3); NEUTROPHILS # (AUTO) 4.6 (2.1-6.9); NEUTROPHILS % 69.8 % (38.7-80.0); PLATELET COUNT 127 x10e3/uL (140-360); RED BLOOD COUNT 2.79 x10e6/uL (3.6-5.1); RED CELL DISTRIBUTION WIDTH 20.5 % (11.7-14.4)
[2023-03-01 06:49] LABS: ALBUMIN 2.3 g/dL (3.5-5.0); ALBUMIN/GLOBULIN RATIO 0.4 (0.8-2.0); ANION GAP 12.3 mmol/L (8-16); CALCIUM 9.8 mg/dL (8.4-10.2); CREATININE, SERUM 1.03 mg/dL (0.57-1.11)
[2023-03-01 07:01] LABS: POTASSIUM 6.3 mmol/L (3.5-5.1)
[2023-03-01] MEDS ORDERED: SOD POLYSTYRENE SULFONATE SUSP 15 GM/60 ML BTL PO ONE (10:30)
[2023-03-01] MEDS ORDERED: FUROSEMIDE INJ 10 MG/ML 4 ML VIAL IV ONE (10:30)
[2023-03-01] MEDS: SODIUM BICARBONATE 650 MG TAB PO SCH (17:14)
[2023-03-01] MEDS: ACETAMINOPHEN 325 MG TAB PO PRN (20:30)
[2023-03-02] VITALS: BP 122/63; PULSE 90; RESP 17; TEMP 97.9; O2SAT 100
[2023-03-02] MEDS: ACETAMINOPHEN 325 MG TAB PO PRN (03:55)
[2023-03-02 04:48] VITALS: BP 139/77; PULSE 88; RESP 16; TEMP 97.4; O2SAT 100
[2023-03-02] MEDS: SODIUM CHLORIDE 0.9% 1000ML 1,000 ML IV SCH ×2 (06:07→12:45)
[2023-03-02 06:35] LABS: BASOPHILS % 0.2 % (0.0-1.0); EOSINOPHILS # (AUTO) 0.4 (0.0-0.4); EOSINOPHILS % 6.5 % (0.0-6.0); HEMATOCRIT 27.7 % (34.2-44.1); HEMOGLOBIN 8.6 g/dL (12.0-16.0); LYMPHOCYTES # (AUTO) 0.8 (1.0-3.2); LYMPHOCYTES % 11.9 % (18.0-39.1); MEAN CORPUSCULAR HEMOGLOBIN 32.3 pg (28-32); MEAN CORPUSCULAR VOLUME 104.1 fL (81-99); MONOCYTES # (AUTO) 0.5 (0.2-0.8); MONOCYTES % 7.3 % (4.4-11.3); NEUTROPHILS # (AUTO) 4.8 (2.1-6.9); NEUTROPHILS % 73.8 % (38.7-80.0); PLATELET COUNT 130 x10e3/uL (140-360); RED BLOOD COUNT 2.66 x10e6/uL (3.6-5.1); RED CELL DISTRIBUTION WIDTH 20.5 % (11.7-14.4)
[2023-03-02 07:03] LABS: ALBUMIN 2.2 g/dL (3.5-5.0); ALBUMIN/GLOBULIN RATIO 0.4 (0.8-2.0); ANION GAP 11.4 mmol/L (8-16); CREATININE, SERUM 0.91 mg/dL (0.57-1.11); MAGNESIUM 1.6 MG/DL (1.3-2.1); POTASSIUM 5.4 mmol/L (3.5-5.1)
[2023-03-02 07:12] LABS: FERRITIN 1267.2 ng/mL (4.63-204.00)
[2023-03-02 09:03] VITALS: BP_SYST 139; BP_SYST 152; BP_DIAS 63; BP_DIAS 77; PULSE 79; PULSE 88; RESP 16; RESP 19; TEMP 97.4; TEMP 97.7; O2SAT 100; O2SAT 98
[2023-03-02] MEDS: BALSAM PERU/CASTOR OIL 60 GM OINT...G. TP SCH (09:25)
[2023-03-02] MEDS: SODIUM BICARBONATE 650 MG TAB PO SCH ×2 (09:25→17:42)
[2023-03-02 12:00] VITALS: BP 134/54; PULSE 83; RESP 18; TEMP 98.6; O2SAT 95
[2023-03-02] MEDS ORDERED: MAGNESIUM SULFATE 2GM/50ML 50 ML IV ONE (17:15)
[2023-03-02] MEDS ORDERED: FUROSEMIDE INJ 10 MG/ML 2 ML VIAL IV ONE (17:25)
[2023-03-02] MEDS ORDERED: SOD POLYSTYRENE SULFONATE SUSP 15 GM/60 ML BTL PO ONE (17:25)
[2023-03-02 18:30] LABS: ANION GAP 10.6 mmol/L (8-16); CALCIUM 9.3 mg/dL (8.4-10.2); CREATININE, SERUM 0.88 mg/dL (0.57-1.11); POTASSIUM 5.6 mmol/L (3.5-5.1)
[2023-03-02] MEDS: SODIUM BICARBONATE 8.4% 50 ML in SODIUM CHLORIDE 0.45% 1,000 ML IV SCH (18:42)
[2023-03-02 20:00] VITALS: BP 111/62; PULSE 101; RESP 16; TEMP 97.2; O2SAT 100
[2023-03-02 21:00] VITALS: BP 111/62; PULSE 101; RESP 16; TEMP 97.2; O2SAT 100
[2023-03-03] VITALS (8 sets, daily range): BP systolic 131–159; BP diastolic 77–85; PULSE 85–101; RESP 16–18; TEMP 97.3–98.5; O2SAT 98–100
[2023-03-03] MEDS: ACETAMINOPHEN 325 MG TAB PO PRN ×2 (04:13→19:45)
[2023-03-03 04:32] LABS: CLARITY,URINE SL CLOUDY (CLEAR); COLOR,URINE YELLOW (YELLOW); KETONES,URINE NEGATIVE (NEGATIVE); LEUKOCYTE ESTERASE ,URINE SMALL (NEGATIVE); NITRITE,URINE NEGATIVE (NEGATIVE); PROTEIN,URINE DIPSTICK 2+ (NEGATIVE); URINE UROBILINOGEN 0.2 mg/dL (0.2 - 1)
[2023-03-03 04:37] LABS: BACTERIA,URINE MANY /HPF; EPITHELIAL CELLS,URINE FEW /LPF; WBC,URINE (MAN) 21-50 /HPF (0-5)
[2023-03-03] MEDS: SODIUM BICARBONATE 8.4% 50 ML in SODIUM CHLORIDE 0.45% 1,000 ML IV SCH (05:39)
[2023-03-03 06:11] LABS: BASOPHILS % 0.3 % (0.0-1.0); EOSINOPHILS # (AUTO) 0.4 (0.0-0.4); EOSINOPHILS % 5.8 % (0.0-6.0); HEMOGLOBIN 8.5 g/dL (12.0-16.0); LYMPHOCYTES # (AUTO) 0.9 (1.0-3.2); LYMPHOCYTES % 13.3 % (18.0-39.1); MEAN CORPUSCULAR HGB CONC 31.5 g/dL (31-35); MEAN CORPUSCULAR VOLUME 101.5 fL (81-99); MONOCYTES # (AUTO) 0.5 (0.2-0.8); MONOCYTES % 7.3 % (4.4-11.3); NEUTROPHILS # (AUTO) 4.7 (2.1-6.9); NEUTROPHILS % 72.8 % (38.7-80.0); PLATELET COUNT 137 x10e3/uL (140-360); RED BLOOD COUNT 2.66 x10e6/uL (3.6-5.1); RED CELL DISTRIBUTION WIDTH 19.9 % (11.7-14.4)
[2023-03-03 06:43] LABS: ALBUMIN 2.3 g/dL (3.5-5.0); ALBUMIN/GLOBULIN RATIO 0.4 (0.8-2.0); ANION GAP 9.9 mmol/L (8-16); CALCIUM 9.1 mg/dL (8.4-10.2); CREATININE, SERUM 0.83 mg/dL (0.57-1.11); POTASSIUM 4.9 mmol/L (3.5-5.1)
[2023-03-03] MEDS: SODIUM BICARBONATE 650 MG TAB PO SCH ×2 (08:18→16:25)
[2023-03-03] MEDS: BALSAM PERU/CASTOR OIL 60 GM OINT...G. TP SCH (11:46)
[2023-03-04] VITALS (9 sets, daily range): BP systolic 133–164; BP diastolic 73–99; PULSE 66–95; RESP 16–18; TEMP 98–98.7; O2SAT 96–100
[2023-03-04 07:22] LABS: BASOPHILS % 0.2 % (0.0-1.0); EOSINOPHILS # (AUTO) 0.3 (0.0-0.4); EOSINOPHILS % 5.8 % (0.0-6.0); HEMATOCRIT 28.5 % (34.2-44.1); HEMOGLOBIN 8.8 g/dL (12.0-16.0); LYMPHOCYTES # (AUTO) 0.7 (1.0-3.2); MEAN CORPUSCULAR HGB CONC 30.9 g/dL (31-35); MEAN CORPUSCULAR VOLUME 103.6 fL (81-99); MONOCYTES # (AUTO) 0.4 (0.2-0.8); MONOCYTES % 7.2 % (4.4-11.3); NEUTROPHILS # (AUTO) 4.2 (2.1-6.9); NEUTROPHILS % 73.4 % (38.7-80.0); PLATELET COUNT 135 x10e3/uL (140-360); RED BLOOD COUNT 2.75 x10e6/uL (3.6-5.1); RED CELL DISTRIBUTION WIDTH 19.8 % (11.7-14.4)
[2023-03-04 07:35] LABS: ALBUMIN 2.3 g/dL (3.5-5.0); ALBUMIN/GLOBULIN RATIO 0.4 (0.8-2.0); ANION GAP 10.9 mmol/L (8-16); CALCIUM 9.2 mg/dL (8.4-10.2); CREATININE, SERUM 0.8 mg/dL (0.57-1.11); POTASSIUM 4.9 mmol/L (3.5-5.1)
[2023-03-04] MEDS: BALSAM PERU/CASTOR OIL 60 GM OINT...G. TP SCH (08:27)
[2023-03-04] MEDS: SODIUM BICARBONATE 650 MG TAB PO SCH ×2 (08:28→16:28)
[2023-03-04] MEDS ORDERED: ALBUTEROL/IPRATROPIUM 3 ML NEB NEB PRN (11:00)
[2023-03-04] MEDS: AMLODIPINE BESYLATE 5 MG TAB PEG SCH ×2 (12:35→20:07)
[2023-03-04] MEDS: METOPROLOL TARTRATE 50 MG TAB PEG SCH ×2 (12:36→20:07)
[2023-03-04] MEDS ORDERED: ALBUTEROL/IPRATROPIUM 3 ML NEB NEB SCH (13:06)
[2023-03-04] MEDS ORDERED: ALPRAZOLAM 0.25 MG TAB PO PRN (13:15)
[2023-03-04] MEDS: GABAPENTIN 100 MG CAP PEG SCH (16:29)
[2023-03-04] MEDS: QUETIAPINE FUMARATE 100 MG TAB PEG SCH (20:04)
[2023-03-04] MEDS: TRAMADOL HCL 50 MG TAB PEG PRN (20:05)
[2023-03-04] MEDS: SIMVASTATIN 20 MG TAB PEG SCH (20:06)
[2023-03-05] VITALS (10 sets, daily range): BP systolic 99–144; BP diastolic 55–81; PULSE 64–88; RESP 16–21; TEMP 97.7–99.8; O2SAT 95–100
[2023-03-05] MEDS: LEVOTHYROXINE SODIUM 112 MCG TAB PEG SCH (05:33)
[2023-03-05 06:39] LABS: CALCIUM 8.8 mg/dL (8.4-10.2); CREATININE, SERUM 1.07 mg/dL (0.57-1.11)
[2023-03-05] MEDS: AMLODIPINE BESYLATE 5 MG TAB PEG SCH ×2 (09:31→21:03)
[2023-03-05] MEDS: METOPROLOL TARTRATE 50 MG TAB PEG SCH ×2 (09:31→21:02)
[2023-03-05] MEDS: QUETIAPINE FUMARATE 25 MG TAB PEG SCH (09:31)
[2023-03-05] MEDS: GABAPENTIN 100 MG CAP PEG SCH ×2 (09:32→16:25)
[2023-03-05] MEDS: SODIUM BICARBONATE 650 MG TAB PO SCH ×2 (09:32→16:25)
[2023-03-05] MEDS: BALSAM PERU/CASTOR OIL 60 GM OINT...G. TP SCH (16:29)
[2023-03-05] MEDS: SIMVASTATIN 20 MG TAB PEG SCH (21:01)
[2023-03-05] MEDS: TRAMADOL HCL 50 MG TAB PEG PRN (21:02)
[2023-03-05] MEDS: QUETIAPINE FUMARATE 100 MG TAB PEG SCH (21:06)
[2023-03-06] VITALS (9 sets, daily range): BP systolic 68–154; BP diastolic 43–78; PULSE 74–86; RESP 15–18; TEMP 97–99.3; O2SAT 98–100
[2023-03-06] MEDS: LEVOTHYROXINE SODIUM 112 MCG TAB PEG SCH (05:51)
[2023-03-06] MEDS: TRAMADOL HCL 50 MG TAB PEG PRN (06:03)
[2023-03-06 06:22] LABS: BASOPHILS % 0.2 % (0.0-1.0); EOSINOPHILS # (AUTO) 0.4 (0.0-0.4); EOSINOPHILS % 4.4 % (0.0-6.0); HEMATOCRIT 28.4 % (34.2-44.1); HEMOGLOBIN 8.8 g/dL (12.0-16.0); LYMPHOCYTES # (AUTO) 1.2 (1.0-3.2); LYMPHOCYTES % 14.1 % (18.0-39.1); MEAN CORPUSCULAR HEMOGLOBIN 32.4 pg (28-32); MEAN CORPUSCULAR VOLUME 104.4 fL (81-99); MONOCYTES # (AUTO) 0.5 (0.2-0.8); MONOCYTES % 6.1 % (4.4-11.3); NEUTROPHILS # (AUTO) 6.1 (2.1-6.9); NEUTROPHILS % 74.8 % (38.7-80.0); PLATELET COUNT 122 x10e3/uL (140-360); RED BLOOD COUNT 2.72 x10e6/uL (3.6-5.1); RED CELL DISTRIBUTION WIDTH 19.2 % (11.7-14.4)
[2023-03-06 07:32] LABS: ANION GAP 9.5 mmol/L (8-16); CALCIUM 8.7 mg/dL (8.4-10.2); CREATININE, SERUM 1.27 mg/dL (0.57-1.11); POTASSIUM 5.5 mmol/L (3.5-5.1)
[2023-03-06] MEDS: BALSAM PERU/CASTOR OIL 60 GM OINT...G. TP SCH (08:31)
[2023-03-06] MEDS: SODIUM BICARBONATE 650 MG TAB PO SCH ×2 (08:33→16:48)
[2023-03-06] MEDS: METOPROLOL TARTRATE 50 MG TAB PEG SCH (08:35)
[2023-03-06] MEDS: GABAPENTIN 100 MG CAP PEG SCH ×2 (08:35→16:49)
[2023-03-06] MEDS: QUETIAPINE FUMARATE 25 MG TAB PEG SCH (08:36)
[2023-03-06] MEDS: AMLODIPINE BESYLATE 5 MG TAB PEG SCH (08:36)
[2023-03-06] MEDS ORDERED: SODIUM CHLORIDE 0.9% 500ML 500 ML IV ONE (16:15)
[2023-03-06] MEDS ORDERED: FUROSEMIDE INJ 10 MG/ML 2 ML VIAL IV ONE (16:30)
[2023-03-06] MEDS: QUETIAPINE FUMARATE 100 MG TAB PEG SCH (20:54)
[2023-03-06] MEDS: SIMVASTATIN 20 MG TAB PEG SCH (20:54)
[2023-03-07] VITALS (8 sets, daily range): BP systolic 94–153; BP diastolic 59–81; PULSE 78–111; RESP 15–20; TEMP 97.1–98.5; O2SAT 96–100
[2023-03-07] MEDS: LEVOTHYROXINE SODIUM 112 MCG TAB PEG SCH (05:39)
[2023-03-07 05:49] LABS: BASOPHILS % 0.3 % (0.0-1.0); EOSINOPHILS # (AUTO) 0.4 (0.0-0.4); EOSINOPHILS % 6.5 % (0.0-6.0); HEMATOCRIT 26.9 % (34.2-44.1); HEMOGLOBIN 8.4 g/dL (12.0-16.0); LYMPHOCYTES # (AUTO) 0.9 (1.0-3.2); LYMPHOCYTES % 13.3 % (18.0-39.1); MEAN CORPUSCULAR HEMOGLOBIN 32.1 pg (28-32); MEAN CORPUSCULAR HGB CONC 31.2 g/dL (31-35); MEAN CORPUSCULAR VOLUME 102.7 fL (81-99); MONOCYTES # (AUTO) 0.4 (0.2-0.8); MONOCYTES % 6.1 % (4.4-11.3); NEUTROPHILS % 73.5 % (38.7-80.0); PLATELET COUNT 108 x10e3/uL (140-360); RED BLOOD COUNT 2.62 x10e6/uL (3.6-5.1); RED CELL DISTRIBUTION WIDTH 19.3 % (11.7-14.4)
[2023-03-07 06:27] LABS: ANION GAP 10.4 mmol/L (8-16); CALCIUM 8.3 mg/dL (8.4-10.2); CREATININE, SERUM 1.26 mg/dL (0.57-1.11); MAGNESIUM 1.6 MG/DL (1.3-2.1); POTASSIUM 4.4 mmol/L (3.5-5.1)
[2023-03-07] MEDS: GABAPENTIN 100 MG CAP PEG SCH ×2 (08:10→16:08)
[2023-03-07] MEDS: SODIUM BICARBONATE 650 MG TAB PO SCH ×2 (08:11→16:08)
[2023-03-07] MEDS: BALSAM PERU/CASTOR OIL 60 GM OINT...G. TP SCH (08:12)
[2023-03-07] MEDS ORDERED: MAGNESIUM SULFATE 2GM/50ML 50 ML IV ONE (09:00)
[2023-03-07] MEDS: QUETIAPINE FUMARATE 25 MG TAB PEG SCH (09:00)
[2023-03-07] MEDS ORDERED: BUPIVACAINE HCL 0.5% INJ 30 ML VIAL INJ ONE (10:19)
[2023-03-07] MEDS ORDERED: ALBUMIN 5% 0.05 GM/ML BTL IV ONE (11:47)
[2023-03-07] MEDS ORDERED: ONDANSETRON HCL INJ 2MG/ML 2ML 2 MG/ML VIAL IV PRN (12:15)
[2023-03-07 12:17] LABS: BASOPHILS % 0.2 % (0.0-1.0); EOSINOPHILS # (AUTO) 0.5 (0.0-0.4); EOSINOPHILS % 4.8 % (0.0-6.0); HEMATOCRIT 24.1 % (34.2-44.1); HEMOGLOBIN 7.5 g/dL (12.0-16.0); LYMPHOCYTES # (AUTO) 2.4 (1.0-3.2); LYMPHOCYTES % 22.7 % (18.0-39.1); MEAN CORPUSCULAR HEMOGLOBIN 32.1 pg (28-32); MEAN CORPUSCULAR HGB CONC 31.1 g/dL (31-35); MONOCYTES # (AUTO) 0.6 (0.2-0.8); NEUTROPHILS # (AUTO) 6.8 (2.1-6.9); NEUTROPHILS % 65.8 % (38.7-80.0); PLATELET COUNT 140 x10e3/uL (140-360); RED BLOOD COUNT 2.34 x10e6/uL (3.6-5.1); RED CELL DISTRIBUTION WIDTH 19.3 % (11.7-14.4)
[2023-03-07] MEDS ORDERED: ONDANSETRON HCL INJ 2MG/ML 2ML 2 MG/ML VIAL ONE (12:35)
[2023-03-07] MEDS ORDERED: FENTANYL CITRATE/PF 100MCG/2 ML INJ ONE ×2 (12:35→13:00)
[2023-03-07] MEDS ORDERED: NEOSTIGMINE 1 MG/ML 10ML VIAL ONE (12:55)
[2023-03-07] MEDS ORDERED: ETOMIDATE 2 MG/ML 10 ML INJ IV ONE (12:55)
[2023-03-07] MEDS ORDERED: LIDOCAINE HCL 2% LOCAL INJ 5 ML SDV VIAL INJ ONE (12:55)
[2023-03-07] MEDS ORDERED: GLYCOPYRROLATE INJ 0.2 MG/ML VIAL ONE (12:55)
[2023-03-07] MEDS ORDERED: POVIDONE IODINE 0.05% 0.05 % ML PO ONE (12:55)
[2023-03-07] MEDS ORDERED: SEVOFLURANE INHAL SOLN 250 ML PEN BTL ONE (12:55)
[2023-03-07] MEDS ORDERED: PROPOFOL IV EMULSION 10 MG/ML 20 ML VIAL ONE (12:55)
[2023-03-07] MEDS ORDERED: METOPROLOL TARTRATE INJ 1 MG/ML VIAL ONE (12:55)
[2023-03-07] MEDS ORDERED: ROCURONIUM BROMIDE 10 MG/ML 5ML VIAL IV ONE (12:55)
[2023-03-07] MEDS ORDERED: BUPIVACAINE 0.5%/EPI 30 ML SDV INJ ONE (13:37)
[2023-03-07] MEDS ORDERED: BUPIVACAINE 0.25% 30ML SDV ONE (13:37)
[2023-03-07] MEDS ORDERED: SODIUM CHLORIDE 0.9% 250ML 250 ML ONE (14:10)
[2023-03-07] MEDS ORDERED: METOCLOPRAMIDE HCL 10 MG/2ML VIAL ONE (14:26)
[2023-03-07] MEDS ORDERED: SODIUM CHLORIDE 0.9% 500ML 500 ML IV ONE ×2 (15:00→18:45)
[2023-03-07] MEDS: SODIUM CHLORIDE 0.9% 1000ML 1,000 ML IV SCH ×2 (16:07→20:42)
[2023-03-07] MEDS: HYDROMORPHONE 1MG/1ML INJ IV PRN ×2 (16:08→20:46)
[2023-03-07] MEDS: TRAMADOL HCL 50 MG TAB PEG PRN (18:39)
[2023-03-07] MEDS: SIMVASTATIN 20 MG TAB PEG SCH (20:41)
[2023-03-07] MEDS: QUETIAPINE FUMARATE 100 MG TAB PEG SCH (20:41)
[2023-03-08] VITALS (10 sets, daily range): BP systolic 99–137; BP diastolic 45–83; PULSE 96–111; RESP 16–22; TEMP 97.3–99.1; O2SAT 97–100
[2023-03-08] MEDS: HYDROMORPHONE 1MG/1ML INJ IV PRN ×3 (00:21→20:23)
[2023-03-08] MEDS: LEVOTHYROXINE SODIUM 112 MCG TAB PEG SCH (05:28)
[2023-03-08] MEDS: SODIUM CHLORIDE 0.9% 1000ML 1,000 ML IV SCH ×2 (05:36→11:36)
[2023-03-08 05:58] LABS: BASOPHILS % 0.1 % (0.0-1.0); EOSINOPHILS # (AUTO) 0.1 (0.0-0.4); EOSINOPHILS % 0.5 % (0.0-6.0); HEMATOCRIT 25.6 % (34.2-44.1); HEMOGLOBIN 8.1 g/dL (12.0-16.0); LYMPHOCYTES # (AUTO) 0.8 (1.0-3.2); LYMPHOCYTES % 5.4 % (18.0-39.1); MEAN CORPUSCULAR HEMOGLOBIN 32.1 pg (28-32); MEAN CORPUSCULAR HGB CONC 31.6 g/dL (31-35); MEAN CORPUSCULAR VOLUME 101.6 fL (81-99); MONOCYTES # (AUTO) 0.9 (0.2-0.8); MONOCYTES % 6.4 % (4.4-11.3); NEUTROPHILS # (AUTO) 12.6 (2.1-6.9); PLATELET COUNT 132 x10e3/uL (140-360); RED BLOOD COUNT 2.52 x10e6/uL (3.6-5.1)
[2023-03-08 06:31] LABS: ALBUMIN/GLOBULIN RATIO 0.5 (0.8-2.0); ANION GAP 12.6 mmol/L (8-16); CALCIUM 8.2 mg/dL (8.4-10.2); CREATININE, SERUM 1.57 mg/dL (0.57-1.11); MAGNESIUM 1.8 MG/DL (1.3-2.1); POTASSIUM 5.6 mmol/L (3.5-5.1)
[2023-03-08] MEDS: QUETIAPINE FUMARATE 25 MG TAB PEG SCH (09:58)
[2023-03-08] MEDS: SODIUM BICARBONATE 650 MG TAB PO SCH ×2 (09:58→17:37)
[2023-03-08] MEDS: GABAPENTIN 100 MG CAP PEG SCH ×2 (09:58→17:39)
[2023-03-08] MEDS: BALSAM PERU/CASTOR OIL 60 GM OINT...G. TP SCH (10:04)
[2023-03-08] MEDS: ACETAMINOPHEN 325 MG TAB PO PRN (15:25)
[2023-03-08] MEDS ORDERED: SODIUM BICARBONATE 8.4% 150 ML in DEXTROSE 5% 1,000 ML IV ONE (15:30)
[2023-03-08] MEDS ORDERED: FUROSEMIDE INJ 10 MG/ML 4 ML VIAL IV ONE (15:45)
[2023-03-08] MEDS: QUETIAPINE FUMARATE 100 MG TAB PEG SCH (20:24)
[2023-03-08] MEDS: SIMVASTATIN 20 MG TAB PEG SCH (20:24)
[2023-03-09] VITALS (9 sets, daily range): BP systolic 105–151; BP diastolic 45–64; PULSE 85–122; RESP 16–20; TEMP 97.7–100.7; O2SAT 95–100
[2023-03-09] MEDS: HYDROMORPHONE 1MG/1ML INJ IV PRN ×3 (04:44→18:20)
[2023-03-09 05:03] LABS: BASOPHILS % 0.1 % (0.0-1.0); EOSINOPHILS # (AUTO) 0.2 (0.0-0.4); EOSINOPHILS % 1.6 % (0.0-6.0); HEMATOCRIT 22.3 % (34.2-44.1); LYMPHOCYTES # (AUTO) 0.7 (1.0-3.2); LYMPHOCYTES % 4.9 % (18.0-39.1); MEAN CORPUSCULAR HEMOGLOBIN 31.4 pg (28-32); MEAN CORPUSCULAR HGB CONC 31.4 g/dL (31-35); MONOCYTES # (AUTO) 0.8 (0.2-0.8); MONOCYTES % 5.6 % (4.4-11.3); NEUTROPHILS # (AUTO) 12.7 (2.1-6.9); NEUTROPHILS % 87.1 % (38.7-80.0); PLATELET COUNT 130 x10e3/uL (140-360); RED BLOOD COUNT 2.23 x10e6/uL (3.6-5.1); RED CELL DISTRIBUTION WIDTH 19.3 % (11.7-14.4)
[2023-03-09 05:23] LABS: ANION GAP 12.9 mmol/L (8-16); CALCIUM 7.8 mg/dL (8.4-10.2); CREATININE, SERUM 1.54 mg/dL (0.57-1.11); MAGNESIUM 1.6 MG/DL (1.3-2.1); POTASSIUM 4.9 mmol/L (3.5-5.1)
[2023-03-09] MEDS: LEVOTHYROXINE SODIUM 112 MCG TAB PEG SCH (06:37)
[2023-03-09] MEDS ORDERED: SODIUM CHLORIDE 0.9% 1000ML 1,500 ML IV ONE (09:00)
[2023-03-09] MEDS ORDERED: MAGNESIUM SULFATE 2GM/50ML 50 ML IV ONE (09:00)
[2023-03-09] MEDS: SODIUM BICARBONATE 650 MG TAB PO SCH ×2 (09:49→16:58)
[2023-03-09] MEDS: GABAPENTIN 100 MG CAP PEG SCH ×2 (09:49→16:58)
[2023-03-09] MEDS: QUETIAPINE FUMARATE 25 MG TAB PEG SCH (09:49)
[2023-03-09] MEDS: SODIUM CHLORIDE 0.9% 1000ML 1,000 ML IV SCH ×2 (09:50→20:38)
[2023-03-09] MEDS: BALSAM PERU/CASTOR OIL 60 GM OINT...G. TP SCH (09:56)
[2023-03-09 15:23] LABS: ANION GAP 10.8 mmol/L (8-16); CREATININE, SERUM 1.26 mg/dL (0.57-1.11); POTASSIUM 3.8 mmol/L (3.5-5.1)
[2023-03-09 15:33] LABS: CALCIUM 6.5 mg/dL (8.4-10.2)
[2023-03-09 16:11] LABS: HEMATOCRIT 19.8 % (34.2-44.1)
[2023-03-09 16:12] LABS: HEMOGLOBIN 6.2 g/dL (12.0-16.0)
[2023-03-09] MEDS ORDERED: SODIUM CHLORIDE 0.9% 250ML 250 ML IV ONE (16:15)
[2023-03-09] MEDS ORDERED: OYST-CAL-D 500MG TABLET PO ONE (16:15)
[2023-03-09] MEDS: OYST-CAL-D 500MG TABLET PO SCH (19:30)
[2023-03-09] MEDS: QUETIAPINE FUMARATE 100 MG TAB PEG SCH (20:37)
[2023-03-09] MEDS: SIMVASTATIN 20 MG TAB PEG SCH (20:37)
[2023-03-09] MEDS: ACETAMINOPHEN 325 MG TAB PO PRN (22:23)
[2023-03-10] VITALS (10 sets, daily range): BP systolic 110–131; BP diastolic 63–75; PULSE 88–127; RESP 16–22; TEMP 97.8–101; O2SAT 93–100
[2023-03-10] MEDS: ACETAMINOPHEN 325 MG TAB PO PRN (04:14)
[2023-03-10 05:43] LABS: BASOPHILS % 0.1 % (0.0-1.0); EOSINOPHILS # (AUTO) 0.2 (0.0-0.4); EOSINOPHILS % 1.5 % (0.0-6.0); HEMATOCRIT 24.9 % (34.2-44.1); HEMOGLOBIN 8.1 g/dL (12.0-16.0); LYMPHOCYTES # (AUTO) 0.6 (1.0-3.2); LYMPHOCYTES % 4.4 % (18.0-39.1); MEAN CORPUSCULAR HEMOGLOBIN 32.1 pg (28-32); MEAN CORPUSCULAR HGB CONC 32.5 g/dL (31-35); MEAN CORPUSCULAR VOLUME 98.8 fL (81-99); MONOCYTES # (AUTO) 0.8 (0.2-0.8); MONOCYTES % 5.7 % (4.4-11.3); NEUTROPHILS # (AUTO) 12.7 (2.1-6.9); NEUTROPHILS % 87.5 % (38.7-80.0); PLATELET COUNT 122 x10e3/uL (140-360); RED BLOOD COUNT 2.52 x10e6/uL (3.6-5.1); RED CELL DISTRIBUTION WIDTH 19.3 % (11.7-14.4)
[2023-03-10] MEDS: LEVOTHYROXINE SODIUM 112 MCG TAB PEG SCH ×2 (06:17→09:29)
[2023-03-10] MEDS: SODIUM CHLORIDE 0.9% 1000ML 1,000 ML IV SCH ×2 (06:19→16:00)
[2023-03-10 06:27] LABS: ALBUMIN 1.5 g/dL (3.5-5.0); ALBUMIN/GLOBULIN RATIO 0.4 (0.8-2.0); CREATININE, SERUM 1.18 mg/dL (0.57-1.11)
[2023-03-10 06:35] LABS: CALCIUM 6.8 mg/dL (8.4-10.2)
[2023-03-10] MEDS: TRAMADOL HCL 50 MG TAB PEG PRN ×2 (06:38→20:40)
[2023-03-10] MEDS: QUETIAPINE FUMARATE 25 MG TAB PEG SCH (09:29)
[2023-03-10] MEDS: SODIUM BICARBONATE 650 MG TAB PO SCH ×2 (09:29→17:00)
[2023-03-10] MEDS: GABAPENTIN 100 MG CAP PEG SCH ×2 (09:31→17:00)
[2023-03-10] MEDS: CALCIUM GLUC 1 G/50 ML NACL 50 ML IV SCH ×2 (09:34→09:42)
[2023-03-10] MEDS: HYDROMORPHONE 1MG/1ML INJ IV PRN (09:37)
[2023-03-10] MEDS ORDERED: ONDANSETRON HCL 4 MG ORAL DISINTEGRATING TAB PO PRN (11:00)
[2023-03-10] MEDS: OYST-CAL-D 500MG TABLET PO SCH ×2 (13:46→17:00)
[2023-03-10 16:38] LABS: HEMATOCRIT 27.1 % (34.2-44.1); HEMOGLOBIN 8.7 g/dL (12.0-16.0)
[2023-03-10] MEDS ORDERED: SODIUM CHLORIDE 0.9% 250ML 250 ML ONE (18:49)
[2023-03-10] MEDS: SIMVASTATIN 20 MG TAB PEG SCH (20:39)
[2023-03-10] MEDS: QUETIAPINE FUMARATE 100 MG TAB PEG SCH (20:39)
[2023-03-11] VITALS (11 sets, daily range): BP systolic 85–113; BP diastolic 56–65; PULSE 97–122; RESP 15–22; TEMP 98.7–100.1; O2SAT 95–100
[2023-03-11] MEDS: SODIUM CHLORIDE 0.9% 1000ML 1,000 ML IV SCH ×2 (02:00→12:21)
[2023-03-11] MEDS: LEVOTHYROXINE SODIUM 112 MCG TAB PEG SCH (05:11)
[2023-03-11 06:51] LABS: HEMATOCRIT 24.5 % (34.2-44.1); HEMOGLOBIN 7.7 g/dL (12.0-16.0); MEAN CORPUSCULAR HEMOGLOBIN 31.3 pg (28-32); MEAN CORPUSCULAR HGB CONC 31.4 g/dL (31-35); MEAN CORPUSCULAR VOLUME 99.6 fL (81-99); RED BLOOD COUNT 2.46 x10e6/uL (3.6-5.1); RED CELL DISTRIBUTION WIDTH 18.8 % (11.7-14.4)
[2023-03-11 07:10] LABS: ALBUMIN 1.4 g/dL (3.5-5.0); ALBUMIN/GLOBULIN RATIO 0.4 (0.8-2.0); ANION GAP 12.3 mmol/L (8-16); CALCIUM 7.6 mg/dL (8.4-10.2); CREATININE, SERUM 1.23 mg/dL (0.57-1.11); POTASSIUM 4.3 mmol/L (3.5-5.1)
[2023-03-11 07:17] LABS: PLATELET COUNT 143 x10e3/uL (140-360)
[2023-03-11] MEDS ORDERED: LACTATED RINGER'S 500 ML IV ONE ×2 (08:30→10:45)
[2023-03-11] MEDS ORDERED: DIATRIZOATE MEGL/DIATRIZOA SOD 30 ML BTL PO ONE (08:38)
[2023-03-11] MEDS ORDERED: LACTATED RINGER'S 1,000 ML ONE (08:43)
[2023-03-11] MEDS: QUETIAPINE FUMARATE 25 MG TAB PEG SCH (10:33)
[2023-03-11] MEDS: OYST-CAL-D 500MG TABLET PO SCH ×2 (10:33→18:12)
[2023-03-11] MEDS: GABAPENTIN 100 MG CAP PEG SCH ×2 (10:33→18:12)
[2023-03-11] MEDS: SODIUM BICARBONATE 650 MG TAB PO SCH ×2 (10:34→18:12)
[2023-03-11 13:25] LABS: BAND NEUTROPHILS % (MANUAL) 1 %; EOSINOPHILS % (MANUAL) 3 % (0-7); LYMPHOCYTES % (MANUAL) 5 % (19-48); NEUTROPHILS % (MANUAL) 90 % (40-74); PLATELET ESTIMATE ADEQUATE; PLATELET MORPHOLOGY COMMENT NORMAL
[2023-03-11] MEDS: BALSAM PERU/CASTOR OIL 60 GM OINT...G. TP SCH ×2 (14:05→14:12)
[2023-03-11] MEDS ORDERED: SODIUM BICARBONATE 8.4% 150 ML in DEXTROSE 5% 1,000 ML IV SCH (19:15)
[2023-03-11 20:55] LABS: BASOPHILS % 0.1 % (0.0-1.0); EOSINOPHILS # (AUTO) 0.4 (0.0-0.4); EOSINOPHILS % 4.8 % (0.0-6.0); HEMATOCRIT 23.8 % (34.2-44.1); HEMOGLOBIN 7.5 g/dL (12.0-16.0); LYMPHOCYTES # (AUTO) 0.4 (1.0-3.2); LYMPHOCYTES % 5.6 % (18.0-39.1); MEAN CORPUSCULAR HEMOGLOBIN 30.7 pg (28-32); MEAN CORPUSCULAR HGB CONC 31.5 g/dL (31-35); MEAN CORPUSCULAR VOLUME 97.5 fL (81-99); MONOCYTES # (AUTO) 0.6 (0.2-0.8); MONOCYTES % 7.6 % (4.4-11.3); NEUTROPHILS # (AUTO) 6.2 (2.1-6.9); NEUTROPHILS % 81.5 % (38.7-80.0); PLATELET COUNT 135 x10e3/uL (140-360); RED BLOOD COUNT 2.44 x10e6/uL (3.6-5.1); RED CELL DISTRIBUTION WIDTH 18.7 % (11.7-14.4)
[2023-03-11] MEDS ORDERED: DEXTROSE 5% 0 ML IV ONE (21:22)
[2023-03-11] MEDS: QUETIAPINE FUMARATE 100 MG TAB PEG SCH (21:31)
[2023-03-11] MEDS: SIMVASTATIN 20 MG TAB PEG SCH (21:31)
[2023-03-11] MEDS ORDERED: SODIUM BICARBONATE 8.4% SYRING 150 ML ONE (22:05)
[2023-03-11] MEDS ORDERED: DEXTROSE 5% 1,000 ML IV ONE (22:05)
[2023-03-12] VITALS (10 sets, daily range): BP systolic 99–136; BP diastolic 53–79; PULSE 109–125; RESP 16–21; TEMP 98.7–100.3; O2SAT 93–100
[2023-03-12] MEDS: LEVOTHYROXINE SODIUM 112 MCG TAB PEG SCH (05:31)
[2023-03-12 06:16] LABS: BASOPHILS % 0.2 % (0.0-1.0); EOSINOPHILS # (AUTO) 0.3 (0.0-0.4); EOSINOPHILS % 3.6 % (0.0-6.0); HEMOGLOBIN 7.1 g/dL (12.0-16.0); LYMPHOCYTES # (AUTO) 0.5 (1.0-3.2); LYMPHOCYTES % 5.9 % (18.0-39.1); MEAN CORPUSCULAR HEMOGLOBIN 31.6 pg (28-32); MEAN CORPUSCULAR VOLUME 101.8 fL (81-99); MONOCYTES # (AUTO) 0.5 (0.2-0.8); MONOCYTES % 5.6 % (4.4-11.3); NEUTROPHILS # (AUTO) 6.8 (2.1-6.9); NEUTROPHILS % 84.2 % (38.7-80.0); PLATELET COUNT 127 x10e3/uL (140-360); RED BLOOD COUNT 2.25 x10e6/uL (3.6-5.1); RED CELL DISTRIBUTION WIDTH 18.6 % (11.7-14.4)
[2023-03-12 06:26] LABS: HEMATOCRIT 22.9 % (34.2-44.1)
[2023-03-12 06:27] LABS: ANION GAP 11.9 mmol/L (8-16); CALCIUM 7.1 mg/dL (8.4-10.2); CREATININE, SERUM 1.17 mg/dL (0.57-1.11); POTASSIUM 3.9 mmol/L (3.5-5.1)
[2023-03-12] MEDS: GABAPENTIN 100 MG CAP PEG SCH ×2 (08:38→16:57)
[2023-03-12] MEDS: QUETIAPINE FUMARATE 25 MG TAB PEG SCH (08:38)
[2023-03-12] MEDS: OYST-CAL-D 500MG TABLET PO SCH ×2 (08:38→16:57)
[2023-03-12] MEDS: BALSAM PERU/CASTOR OIL 60 GM OINT...G. TP SCH (08:39)
[2023-03-12] MEDS: HYDROMORPHONE 1MG/1ML INJ IV PRN (08:44)
[2023-03-12] MEDS ORDERED: SODIUM BICARBONATE 8.4% 150 ML in DEXTROSE 5% 1,000 ML IV SCH (10:30)
[2023-03-12 19:55] LABS: HEMATOCRIT 23.6 % (34.2-44.1); HEMOGLOBIN 7.7 g/dL (12.0-16.0)
[2023-03-12] MEDS: SIMVASTATIN 20 MG TAB PEG SCH (20:27)
[2023-03-12] MEDS: QUETIAPINE FUMARATE 100 MG TAB PEG SCH (20:28)
[2023-03-12] MEDS: SODIUM BICARBONATE 8.4% 100 ML in DEXTROSE 5% 1,000 ML IV SCH (20:31)
[2023-03-13] VITALS (7 sets, daily range): BP systolic 93–144; BP diastolic 59–69; PULSE 102–110; RESP 16–19; TEMP 97.5–98.4; O2SAT 95–100
[2023-03-13] MEDS: LEVOTHYROXINE SODIUM 112 MCG TAB PEG SCH (04:41)
[2023-03-13 06:19] LABS: BASOPHILS % 0.1 % (0.0-1.0); EOSINOPHILS # (AUTO) 0.3 (0.0-0.4); EOSINOPHILS % 3.6 % (0.0-6.0); HEMOGLOBIN 6.8 g/dL (12.0-16.0); LYMPHOCYTES # (AUTO) 0.4 (1.0-3.2); LYMPHOCYTES % 4.4 % (18.0-39.1); MEAN CORPUSCULAR HEMOGLOBIN 31.5 pg (28-32); MEAN CORPUSCULAR HGB CONC 33.2 g/dL (31-35); MEAN CORPUSCULAR VOLUME 94.9 fL (81-99); MONOCYTES # (AUTO) 0.5 (0.2-0.8); MONOCYTES % 5.7 % (4.4-11.3); NEUTROPHILS % 85.6 % (38.7-80.0); RED BLOOD COUNT 2.16 x10e6/uL (3.6-5.1); RED CELL DISTRIBUTION WIDTH 18.2 % (11.7-14.4)
[2023-03-13 06:21] LABS: HEMATOCRIT 20.5 % (34.2-44.1)
[2023-03-13 06:22] LABS: PLATELET COUNT 111 x10e3/uL (140-360)
[2023-03-13 06:51] LABS: ALBUMIN 1.1 g/dL (3.5-5.0); ALBUMIN/GLOBULIN RATIO 0.3 (0.8-2.0); ANION GAP 19.9 mmol/L (8-16); CREATININE, SERUM 0.9 mg/dL (0.57-1.11); MAGNESIUM 1.5 MG/DL (1.3-2.1)
[2023-03-13 06:55] LABS: CALCIUM 5.9 mg/dL (8.4-10.2); POTASSIUM 2.9 mmol/L (3.5-5.1)
[2023-03-13] MEDS ORDERED: SODIUM CHLORIDE 0.9% 250ML 250 ML IV ONE (07:00)
[2023-03-13] MEDS: SODIUM BICARBONATE 8.4% 100 ML in DEXTROSE 5% 1,000 ML IV SCH (07:10)
[2023-03-13] MEDS: QUETIAPINE FUMARATE 25 MG TAB PEG SCH (08:27)
[2023-03-13] MEDS: GABAPENTIN 100 MG CAP PEG SCH ×2 (08:28→16:31)
[2023-03-13] MEDS: BALSAM PERU/CASTOR OIL 60 GM OINT...G. TP SCH (08:29)
[2023-03-13] MEDS: OYST-CAL-D 500MG TABLET PO SCH ×3 (08:48→22:49)
[2023-03-13] MEDS ORDERED: POTASSIUM CHLORIDE 20MEQ/100ML 100 ML IV ONE (09:00)
[2023-03-13] MEDS ORDERED: POTASSIUM CHLORIDE 20 MEQ TAB CR PO ONE (11:00)
[2023-03-13] MEDS ORDERED: SODIUM CHLORIDE 0.9% 250ML 250 ML ONE ×2 (11:17→18:19)
[2023-03-13] MEDS: CALCIUM GLUC 1 G/50 ML NACL 50 ML IV SCH ×2 (11:25→12:59)
[2023-03-13 17:34] LABS: ANION GAP 15.8 mmol/L (8-16); CREATININE, SERUM 0.98 mg/dL (0.57-1.11); POTASSIUM 3.8 mmol/L (3.5-5.1)
[2023-03-13] MEDS ORDERED: DIPHENHYDRAMINE HCL 25 MG CAP PO ONE (18:30)
[2023-03-13] MEDS ORDERED: MAGNESIUM SULFATE 2GM/50ML 50 ML IV ONE (22:00)
[2023-03-13] MEDS: QUETIAPINE FUMARATE 100 MG TAB PEG SCH (22:49)
[2023-03-13] MEDS: SIMVASTATIN 20 MG TAB PEG SCH (22:50)
[2023-03-14] VITALS (7 sets, daily range): BP systolic 101–165; BP diastolic 62–81; PULSE 75–111; RESP 16–20; TEMP 97.6–98.9; O2SAT 94–99
[2023-03-14] MEDS: LEVOTHYROXINE SODIUM 112 MCG TAB PEG SCH (05:29)
[2023-03-14 06:34] LABS: BASOPHILS % 0.1 % (0.0-1.0); EOSINOPHILS # (AUTO) 0.5 (0.0-0.4); HEMATOCRIT 26.2 % (34.2-44.1); HEMOGLOBIN 8.7 g/dL (12.0-16.0); LYMPHOCYTES # (AUTO) 0.6 (1.0-3.2); LYMPHOCYTES % 6.7 % (18.0-39.1); MEAN CORPUSCULAR HEMOGLOBIN 31.3 pg (28-32); MEAN CORPUSCULAR HGB CONC 33.2 g/dL (31-35); MEAN CORPUSCULAR VOLUME 94.2 fL (81-99); MONOCYTES # (AUTO) 0.6 (0.2-0.8); MONOCYTES % 6.9 % (4.4-11.3); NEUTROPHILS # (AUTO) 7.4 (2.1-6.9); NEUTROPHILS % 80.6 % (38.7-80.0); PLATELET COUNT 110 x10e3/uL (140-360); RED BLOOD COUNT 2.78 x10e6/uL (3.6-5.1); RED CELL DISTRIBUTION WIDTH 17.2 % (11.7-14.4)
[2023-03-14 07:02] LABS: ALBUMIN 1.2 g/dL (3.5-5.0); ALBUMIN/GLOBULIN RATIO 0.3 (0.8-2.0); ANION GAP 15.9 mmol/L (8-16); CREATININE, SERUM 0.9 mg/dL (0.57-1.11); POTASSIUM 3.9 mmol/L (3.5-5.1)
[2023-03-14] MEDS: GABAPENTIN 100 MG CAP PEG SCH ×2 (09:43→16:33)
[2023-03-14] MEDS: OYST-CAL-D 500MG TABLET PO SCH ×3 (09:44→20:55)
[2023-03-14] MEDS: QUETIAPINE FUMARATE 25 MG TAB PEG SCH (09:44)
[2023-03-14] MEDS: BALSAM PERU/CASTOR OIL 60 GM OINT...G. TP SCH (09:53)
[2023-03-14] MEDS: LACTATED RINGER'S 1,000 ML INJ SCH (16:27)
[2023-03-14] MEDS: SIMVASTATIN 20 MG TAB PEG SCH (20:55)
[2023-03-14] MEDS: QUETIAPINE FUMARATE 100 MG TAB PEG SCH (20:55)
[2023-03-14] MEDS: ACETAMINOPHEN 325 MG TAB PO PRN (20:55)
[2023-03-15] VITALS (10 sets, daily range): BP systolic 117–180; BP diastolic 68–86; PULSE 88–114; RESP 16–20; TEMP 98–99.6; O2SAT 94–100
[2023-03-15] MEDS: LEVOTHYROXINE SODIUM 112 MCG TAB PEG SCH (05:13)
[2023-03-15] MEDS: LACTATED RINGER'S 1,000 ML INJ SCH (05:13)
[2023-03-15 05:42] LABS: BASOPHILS % 0.3 % (0.0-1.0); EOSINOPHILS # (AUTO) 0.5 (0.0-0.4); EOSINOPHILS % 6.5 % (0.0-6.0); HEMATOCRIT 27.4 % (34.2-44.1); LYMPHOCYTES # (AUTO) 0.7 (1.0-3.2); LYMPHOCYTES % 9.2 % (18.0-39.1); MEAN CORPUSCULAR HEMOGLOBIN 31.4 pg (28-32); MEAN CORPUSCULAR HGB CONC 32.8 g/dL (31-35); MEAN CORPUSCULAR VOLUME 95.5 fL (81-99); MONOCYTES # (AUTO) 0.6 (0.2-0.8); MONOCYTES % 7.9 % (4.4-11.3); NEUTROPHILS # (AUTO) 5.9 (2.1-6.9); NEUTROPHILS % 75.3 % (38.7-80.0); PLATELET COUNT 119 x10e3/uL (140-360); RED BLOOD COUNT 2.87 x10e6/uL (3.6-5.1); RED CELL DISTRIBUTION WIDTH 17.3 % (11.7-14.4)
[2023-03-15 06:20] LABS: ALBUMIN 1.2 g/dL (3.5-5.0); ALBUMIN/GLOBULIN RATIO 0.3 (0.8-2.0); ANION GAP 11.7 mmol/L (8-16); CALCIUM 7.3 mg/dL (8.4-10.2); CREATININE, SERUM 0.97 mg/dL (0.57-1.11); MAGNESIUM 2.2 MG/DL (1.3-2.1); POTASSIUM 3.7 mmol/L (3.5-5.1)
[2023-03-15] MEDS: GABAPENTIN 100 MG CAP PEG SCH ×2 (08:51→17:46)
[2023-03-15] MEDS: OYST-CAL-D 500MG TABLET PO SCH ×3 (08:51→21:32)
[2023-03-15] MEDS: QUETIAPINE FUMARATE 25 MG TAB PEG SCH (08:52)
[2023-03-15] MEDS: BALSAM PERU/CASTOR OIL 60 GM OINT...G. TP SCH (10:14)
[2023-03-15] MEDS: METHOCARBAMOL 500 MG TAB PO PRN (13:22)
[2023-03-15] MEDS: QUETIAPINE FUMARATE 100 MG TAB PEG SCH (21:32)
[2023-03-15] MEDS: SIMVASTATIN 20 MG TAB PEG SCH (21:32)
[2023-03-16] VITALS (9 sets, daily range): BP systolic 106–155; BP diastolic 67–93; PULSE 96–111; RESP 16–20; TEMP 97.8–98.8; O2SAT 16–99
[2023-03-16] MEDS: LEVOTHYROXINE SODIUM 112 MCG TAB PEG SCH (05:43)
[2023-03-16 06:15] LABS: BASOPHILS % 0.3 % (0.0-1.0); EOSINOPHILS # (AUTO) 0.4 (0.0-0.4); EOSINOPHILS % 4.6 % (0.0-6.0); HEMATOCRIT 27.7 % (34.2-44.1); HEMOGLOBIN 8.9 g/dL (12.0-16.0); LYMPHOCYTES % 11.3 % (18.0-39.1); MEAN CORPUSCULAR HEMOGLOBIN 31.3 pg (28-32); MEAN CORPUSCULAR HGB CONC 32.1 g/dL (31-35); MEAN CORPUSCULAR VOLUME 97.5 fL (81-99); MONOCYTES # (AUTO) 0.6 (0.2-0.8); MONOCYTES % 6.8 % (4.4-11.3); NEUTROPHILS # (AUTO) 6.6 (2.1-6.9); PLATELET COUNT 119 x10e3/uL (140-360); RED BLOOD COUNT 2.84 x10e6/uL (3.6-5.1); RED CELL DISTRIBUTION WIDTH 17.1 % (11.7-14.4)
[2023-03-16 06:45] LABS: ALBUMIN 1.3 g/dL (3.5-5.0); ALBUMIN/GLOBULIN RATIO 0.3 (0.8-2.0); ANION GAP 9.6 mmol/L (8-16); CALCIUM 7.4 mg/dL (8.4-10.2); CREATININE, SERUM 0.86 mg/dL (0.57-1.11); MAGNESIUM 1.9 MG/DL (1.3-2.1); PHOSPHORUS 3.8 MG/DL (2.3-4.7); POTASSIUM 3.6 mmol/L (3.5-5.1)
[2023-03-16] MEDS: OYST-CAL-D 500MG TABLET PO SCH ×3 (08:27→20:18)
[2023-03-16] MEDS: QUETIAPINE FUMARATE 25 MG TAB PEG SCH (08:27)
[2023-03-16] MEDS: METHOCARBAMOL 500 MG TAB PO PRN (08:27)
[2023-03-16] MEDS: GABAPENTIN 100 MG CAP PEG SCH ×2 (08:28→17:52)
[2023-03-16] MEDS: ACETAMINOPHEN 325 MG TAB PO PRN ×2 (08:28→20:20)
[2023-03-16] MEDS: BALSAM PERU/CASTOR OIL 60 GM OINT...G. TP SCH (17:52)
[2023-03-16] MEDS: QUETIAPINE FUMARATE 100 MG TAB PEG SCH (20:18)
[2023-03-16] MEDS: SIMVASTATIN 20 MG TAB PEG SCH (20:18)
[2023-03-17 01:33] VITALS: BP 120/82; PULSE 98; RESP 16; TEMP 98.5; O2SAT 99
[2023-03-17 01:35] VITALS: BP 120/82; PULSE 98; RESP 16; TEMP 98.5; O2SAT 99
[2023-03-17] MEDS: LEVOTHYROXINE SODIUM 112 MCG TAB PEG SCH (06:04)
[2023-03-17 06:35] LABS: BASOPHILS % 0.2 % (0.0-1.0); EOSINOPHILS # (AUTO) 0.6 (0.0-0.4); EOSINOPHILS % 6.4 % (0.0-6.0); HEMATOCRIT 27.3 % (34.2-44.1); LYMPHOCYTES # (AUTO) 0.9 (1.0-3.2); LYMPHOCYTES % 9.9 % (18.0-39.1); MEAN CORPUSCULAR HEMOGLOBIN 31.4 pg (28-32); MEAN CORPUSCULAR VOLUME 95.1 fL (81-99); MONOCYTES # (AUTO) 0.6 (0.2-0.8); MONOCYTES % 6.7 % (4.4-11.3); NEUTROPHILS # (AUTO) 6.5 (2.1-6.9); NEUTROPHILS % 76.2 % (38.7-80.0); PLATELET COUNT 115 x10e3/uL (140-360); RED BLOOD COUNT 2.87 x10e6/uL (3.6-5.1); RED CELL DISTRIBUTION WIDTH 17.2 % (11.7-14.4)
[2023-03-17 07:13] LABS: ALBUMIN 1.3 g/dL (3.5-5.0); ALBUMIN/GLOBULIN RATIO 0.3 (0.8-2.0); ANION GAP 9.6 mmol/L (8-16); CREATININE, SERUM 0.86 mg/dL (0.57-1.11); MAGNESIUM 1.8 MG/DL (1.3-2.1); POTASSIUM 3.6 mmol/L (3.5-5.1)
[2023-03-17 07:42] LABS: CALCIUM 7.5 mg/dL (8.4-10.2)
[2023-03-17] MEDS ORDERED: METHOCARBAMOL500 MG PO (08:07)
[2023-03-17 08:17] VITALS: BP 151/67; PULSE 97; RESP 18; TEMP 98.1; O2SAT 100
[2023-03-17 08:45] VITALS: BP 151/67; PULSE 97; RESP 18; TEMP 98.1; O2SAT 100
[2023-03-17] MEDS: GABAPENTIN 100 MG CAP PEG SCH (08:46)
[2023-03-17] MEDS: OYST-CAL-D 500MG TABLET PO SCH (08:46)
[2023-03-17] MEDS: QUETIAPINE FUMARATE 25 MG TAB PEG SCH (08:46)
[2023-03-17] MEDS: BALSAM PERU/CASTOR OIL 60 GM OINT...G. TP SCH (08:47)
== END 2023-03-17 11:09 | DRG 628 ==
LOC: ER 19:28 → ERHOLD 20:38 → MED/SURG2 03-01 01:52
PROVIDERS: ADMIT Internal Medicine; ATTEND Internal Medicine
PROC: 02HV33Z Insertion of Infusion Device into Superior Vena Cava, Percutaneous Approach (ICD-10-PCS; 2023-02-28)
PROC: 30233N1 Transfusion of Nonautologous Red Blood Cells into Peripheral Vein, Percutaneous Approach (ICD-10-PCS; 2023-03-07)
PROC: 0DBB0ZZ Excision of Ileum, Open Approach (ICD-10-PCS; principal; 2023-03-07 10:29)
PROC: 0DNW0ZZ Release Peritoneum, Open Approach (ICD-10-PCS; 2023-03-07 10:29)
DX: E87.5 Hyperkalemia (principal); K56.2 Volvulus; K76.6 Portal hypertension; N39.0 Urinary tract infection, site not specified; Z16.11 Resistance to penicillins; R18.8 Other ascites; N17.9 Acute kidney failure, unspecified; K91.89 Other postprocedural complications and disorders of digestive system; K56.7 Ileus, unspecified; B96.1 Klebsiella pneumoniae [K. pneumoniae] as the cause of diseases classified elsewhere; Z43.2 Encounter for attention to ileostomy; K66.0 Peritoneal adhesions (postprocedural) (postinfection); K74.60 Unspecified cirrhosis of liver; I25.2 Old myocardial infarction; N18.9 Chronic kidney disease, unspecified; L89.322 Pressure ulcer of left buttock, stage 2; E78.5 Hyperlipidemia, unspecified; K21.9 Gastro-esophageal reflux disease without esophagitis; M32.9 Systemic lupus erythematosus, unspecified; R16.1 Splenomegaly, not elsewhere classified; E03.9 Hypothyroidism, unspecified; E87.20 Acidosis, unspecified; R74.8 Abnormal levels of other serum enzymes; K75.81 Nonalcoholic steatohepatitis (NASH); E83.42 Hypomagnesemia; R13.10 Dysphagia, unspecified; R00.0 Tachycardia, unspecified; D50.0 Iron deficiency anemia secondary to blood loss (chronic); Z20.822 Contact with and (suspected) exposure to COVID-19
CPT/HCPCS: 0223U; 36415; 36584; 71045; 74018; 74019; 74176; 76700; 76705; 80048; 80053; 81001; 82550; 82607; 82728; 82948; 83540; 83605; 83735; 83880; 84100; 84132; 84466; 84484; 85007; 85014; 85018; 85025; 85027; 86704; 86850; 86860; 86870; 86880; 86900; 86905; 86920; 86922; 87040; 87086; 87186; 88304; 93005; 94640; 94799; 96361; 99001; 99252; 99284; J0612; J0696; J1170; J1940; J2001; J2405; J2543; J2710; J2765; J3475; J3480; J7030; J7040; J7050; J7070; J7120; J7799; P9016; Q9963

== ENCOUNTER 2023-04-20 20:10 | Inpatient (IN) | payer MEDICARE, OTHER ==
[~2023-04-20] VITALS: Ht 170.2 cm; Wt 59.0 kg
[~2023-04-20 20:10] MED LIST changes: +METHOCARBAMOL500 MG PO; +SODIUM BICARBO650 MG PO
[2023-04-20 21:49] LABS: ALANINE AMINOTRANSFERASE 17 IU/L (0-55); ALBUMIN 1.5 g/dL (3.5-5.0); ALBUMIN/GLOBULIN RATIO 0.2 (0.8-2.0); ALKALINE PHOSPHATASE 426 IU/L (40-150); ANION GAP 10.5 mmol/L (8-16); BLOOD UREA NITROGEN 19 mg/dL (7-26); BUN/CREATININE RATIO 18 (6-25); CALCIUM 7.7 mg/dL (8.4-10.2); CARBON DIOXIDE 24 mmol/L (22-29); CHLORIDE 108 mmol/L (98-107); CREATINE KINASE 13 IU/L (29-168); CREATININE, SERUM 1.08 mg/dL (0.57-1.11); GLUCOSE 88 mg/dL (74-118); POTASSIUM 4.5 mmol/L (3.5-5.1); SODIUM 138 mmol/L (136-145)
[2023-04-20 21:51] LABS: BASOPHILS % 0.3 % (0.0-1.0); EOSINOPHILS # (AUTO) 0.4 (0.0-0.4); HEMATOCRIT 28.4 % (34.2-44.1); HEMOGLOBIN 9.1 g/dL (12.0-16.0); LYMPHOCYTES # (AUTO) 0.8 (1.0-3.2); LYMPHOCYTES % 12.1 % (18.0-39.1); MEAN CORPUSCULAR HEMOGLOBIN 31.6 pg (28-32); MEAN CORPUSCULAR VOLUME 98.6 fL (81-99); MONOCYTES # (AUTO) 0.3 (0.2-0.8); MONOCYTES % 4.2 % (4.4-11.3); NEUTROPHILS # (AUTO) 5.4 (2.1-6.9); NEUTROPHILS % 77.8 % (38.7-80.0); PLATELET COUNT 213 x10e3/uL (140-360); RED BLOOD COUNT 2.88 x10e6/uL (3.6-5.1); RED CELL DISTRIBUTION WIDTH 19.1 % (11.7-14.4); WHITE BLOOD COUNT 6.97 x10e3/uL (4.8-10.8)
[2023-04-20] MEDS ORDERED: IOPAMIDOL 370 MG/ML 100 ML INFUS..BTL INJ ONE (22:01)
[2023-04-21] MEDS ORDERED: ONDANSETRON HCL INJ 2MG/ML 2ML 2 MG/ML VIAL IV PRN
[2023-04-21] MEDS ORDERED: Morphine 2mg Syringe 2 MG/ML SYR IV PRN
[2023-04-21] MEDS: SODIUM CHLORIDE 0.9% 1000ML 1,000 ML IV SCH ×3 (02:18→12:50)
[2023-04-21 03:00] VITALS: PULSE 80; RESP 18; O2SAT 100
[2023-04-21 03:18] LABS: CLARITY,URINE CLOUDY (CLEAR); COLOR,URINE YELLOW (YELLOW); KETONES,URINE NEGATIVE (NEGATIVE); LEUKOCYTE ESTERASE ,URINE MODERATE (NEGATIVE); NITRITE,URINE NEGATIVE (NEGATIVE); PROTEIN,URINE DIPSTICK TRACE (NEGATIVE); URINE UROBILINOGEN 1 mg/dL (0.2 - 1)
[2023-04-21 03:25] LABS: BACTERIA,URINE MODERATE /HPF; EPITHELIAL CELLS,URINE FEW /LPF; WBC,URINE (MAN) 21-50 /HPF (0-5); YEAST,URINE RARE
[2023-04-21] MEDS ORDERED: DEXTROSE 50% SYRINGE 50 ML IV ONE (10:29)
[2023-04-21] MEDS: DOCUSATE SODIUM 100 MG CAP PO SCH (10:32)
[2023-04-21] MEDS: SENNOSIDES 8.6 MG TAB PO SCH (10:32)
[2023-04-21] MEDS ORDERED: DEXTROSE 50% SYRINGE 50 ML IV PRN (11:30)
[2023-04-21 12:00] VITALS: BP 151/75; PULSE 88; RESP 17; TEMP 97.6; O2SAT 99
[2023-04-21] MEDS ORDERED: POVIDONE IODINE 0.05% 0.05 % ML PO ONE (12:00)
[2023-04-21] MEDS ORDERED: PROPOFOL IV EMULSION 10 MG/ML 20 ML VIAL ONE (12:00)
[2023-04-21 16:00] VITALS: BP 158/76; PULSE 93; RESP 19; TEMP 98; O2SAT 99
[2023-04-21 20:00] VITALS: BP 163/76; PULSE 97; RESP 18; TEMP 98.3; O2SAT 98
[2023-04-21 22:56] VITALS: BP 163/76; PULSE 97; RESP 18; TEMP 98.3; O2SAT 98
[2023-04-22] VITALS (8 sets, daily range): BP systolic 110–168; BP diastolic 63–74; PULSE 92–102; RESP 16–18; TEMP 98.3–98.8; O2SAT 95–99
[2023-04-22] MEDS: SODIUM CHLORIDE 0.9% 1000ML 1,000 ML IV SCH ×4 (05:21→23:48)
[2023-04-22 07:27] LABS: IRON 62 ug/dL (50-170); TRANSFERRIN < 70 mg/dL (180-382)
[2023-04-22 07:39] LABS: ALBUMIN 1.2 g/dL (3.5-5.0); ALBUMIN/GLOBULIN RATIO 0.2 (0.8-2.0); ANION GAP 8.3 mmol/L (8-16); CREATININE, SERUM 0.82 mg/dL (0.57-1.11); POTASSIUM 3.3 mmol/L (3.5-5.1)
[2023-04-22 07:51] LABS: FERRITIN 1339.76 ng/mL (4.63-204.00); THYROID STIMULATING HORMONE 9.191 uIU/mL (0.350-4.940)
[2023-04-22 08:49] LABS: BASOPHILS % 0.5 % (0.0-1.0); EOSINOPHILS # (AUTO) 0.4 (0.0-0.4); EOSINOPHILS % 6.5 % (0.0-6.0); LYMPHOCYTES # (AUTO) 0.6 (1.0-3.2); LYMPHOCYTES % 9.3 % (18.0-39.1); MEAN CORPUSCULAR HEMOGLOBIN 31.3 pg (28-32); MEAN CORPUSCULAR HGB CONC 31.6 g/dL (31-35); MEAN CORPUSCULAR VOLUME 99.1 fL (81-99); MONOCYTES # (AUTO) 0.5 (0.2-0.8); NEUTROPHILS % 76.1 % (38.7-80.0); PLATELET COUNT 174 x10e3/uL (140-360); RED CELL DISTRIBUTION WIDTH 19.4 % (11.7-14.4); WHITE BLOOD COUNT 6.57 x10e3/uL (4.8-10.8)
[2023-04-22 08:53] LABS: HEMOGLOBIN 7.2 g/dL (12.0-16.0)
[2023-04-22 08:54] LABS: HEMATOCRIT 23.2 % (34.2-44.1)
[2023-04-22] MEDS: DOCUSATE SODIUM 100 MG CAP PO SCH (09:00)
[2023-04-22] MEDS: SENNOSIDES 8.6 MG TAB PO SCH (09:00)
[2023-04-22] MEDS ORDERED: POTASSIUM CHLORIDE 20 MEQ TAB CR PO ONE (09:20)
[2023-04-22] MEDS ORDERED: MAGNESIUM SULFATE 2GM/50ML 50 ML IV ONE (09:30)
[2023-04-22 10:06] LABS: % IRON SATURATION 80 % (15-50); TOTAL IRON BINDING CAPACITY 81 ug/dL (261-478)
[2023-04-22] MEDS: ACETAMINOPHEN 325 MG TAB PO PRN (17:28)
[2023-04-23] VITALS (11 sets, daily range): BP systolic 141–182; BP diastolic 68–91; PULSE 92–99; RESP 18–20; TEMP 97–98.3; O2SAT 98–100
[2023-04-23 05:42] LABS: BASOPHILS % 0.5 % (0.0-1.0); EOSINOPHILS # (AUTO) 0.5 (0.0-0.4); HEMATOCRIT 23.1 % (34.2-44.1); HEMOGLOBIN 7.1 g/dL (12.0-16.0); LYMPHOCYTES # (AUTO) 0.6 (1.0-3.2); LYMPHOCYTES % 9.8 % (18.0-39.1); MEAN CORPUSCULAR HGB CONC 30.7 g/dL (31-35); MEAN CORPUSCULAR VOLUME 100.9 fL (81-99); MONOCYTES # (AUTO) 0.5 (0.2-0.8); MONOCYTES % 7.6 % (4.4-11.3); NEUTROPHILS # (AUTO) 4.8 (2.1-6.9); NEUTROPHILS % 73.9 % (38.7-80.0); RED BLOOD COUNT 2.29 x10e6/uL (3.6-5.1); RED CELL DISTRIBUTION WIDTH 19.9 % (11.7-14.4); WHITE BLOOD COUNT 6.55 x10e3/uL (4.8-10.8)
[2023-04-23 05:47] LABS: PLATELET COUNT 180 x10e3/uL (140-360)
[2023-04-23 06:02] LABS: ALBUMIN 1.2 g/dL (3.5-5.0); ALBUMIN/GLOBULIN RATIO 0.2 (0.8-2.0); ANION GAP 7.5 mmol/L (8-16); CREATININE, SERUM 0.81 mg/dL (0.57-1.11); MAGNESIUM 1.9 MG/DL (1.3-2.1); POTASSIUM 3.5 mmol/L (3.5-5.1)
[2023-04-23] MEDS: LEVOTHYROXINE SODIUM 25 MCG TABLET PO SCH (06:15)
[2023-04-23] MEDS: SODIUM CHLORIDE 0.9% 1000ML 1,000 ML IV SCH ×2 (07:55→17:21)
[2023-04-23] MEDS: DOCUSATE SODIUM 100 MG CAP PO SCH (09:00)
[2023-04-23] MEDS: SENNOSIDES 8.6 MG TAB PO SCH (09:00)
[2023-04-23] MEDS: HYDRALAZINE HCL 20 MG/ML VIAL IV PRN (20:27)
[2023-04-24] VITALS (9 sets, daily range): BP systolic 141–190; BP diastolic 77–83; PULSE 64–110; RESP 18–21; TEMP 97.2–98.7; O2SAT 98–100
[2023-04-24] MEDS: ACETAMINOPHEN 325 MG TAB PO PRN ×2 (03:10→09:49)
[2023-04-24 05:29] LABS: BASOPHILS % 0.2 % (0.0-1.0); EOSINOPHILS # (AUTO) 0.4 (0.0-0.4); HEMATOCRIT 24.8 % (34.2-44.1); HEMOGLOBIN 7.7 g/dL (12.0-16.0); LYMPHOCYTES # (AUTO) 0.7 (1.0-3.2); LYMPHOCYTES % 8.5 % (18.0-39.1); MEAN CORPUSCULAR HEMOGLOBIN 31.2 pg (28-32); MEAN CORPUSCULAR VOLUME 100.4 fL (81-99); MONOCYTES # (AUTO) 0.5 (0.2-0.8); MONOCYTES % 5.7 % (4.4-11.3); NEUTROPHILS # (AUTO) 6.9 (2.1-6.9); NEUTROPHILS % 79.5 % (38.7-80.0); PLATELET COUNT 191 x10e3/uL (140-360); RED BLOOD COUNT 2.47 x10e6/uL (3.6-5.1); WHITE BLOOD COUNT 8.74 x10e3/uL (4.8-10.8)
[2023-04-24 06:02] LABS: ALBUMIN 1.2 g/dL (3.5-5.0); ALBUMIN/GLOBULIN RATIO 0.2 (0.8-2.0); ANION GAP 7.1 mmol/L (8-16); CREATININE, SERUM 0.81 mg/dL (0.57-1.11); MAGNESIUM 1.8 MG/DL (1.3-2.1); POTASSIUM 3.1 mmol/L (3.5-5.1)
[2023-04-24 06:07] LABS: CALCIUM 6.9 mg/dL (8.4-10.2)
[2023-04-24] MEDS: LEVOTHYROXINE SODIUM 25 MCG TABLET PO SCH (06:10)
[2023-04-24] MEDS ORDERED: POTASSIUM CHLORIDE 20 MEQ TAB CR PO ONE ×2 (08:00→09:00)
[2023-04-24] MEDS ORDERED: ALBUTEROL/IPRATROPIUM 3 ML NEB NEB PRN (08:15)
[2023-04-24] MEDS ORDERED: METHOCARBAMOL 500 MG TAB PO PRN (08:15)
[2023-04-24] MEDS: AMLODIPINE BESYLATE 5 MG TAB PO SCH (08:41)
[2023-04-24] MEDS: CALCIUM GLUC 1 G/50 ML NACL 50 ML IV SCH ×2 (08:42→10:07)
[2023-04-24] MEDS: DOCUSATE SODIUM 100 MG CAP PO SCH (09:00)
[2023-04-24] MEDS: SENNOSIDES 8.6 MG TAB PO SCH (09:00)
[2023-04-24 09:32] LABS: PLATELET ESTIMATE ADEQUATE; PLATELET MORPHOLOGY COMMENT NORMAL; RBC MORPHOLOGY COMMENT ABNORMAL
[2023-04-24 09:33] LABS: ANISOCYTOSIS MODERATE; HYPOCHROMASIA MODERATE; POLYCHROMASIA FEW
[2023-04-24] MEDS: FLUCONAZOLE 100 MG TAB PO SCH (09:50)
[2023-04-24] MEDS: QUETIAPINE FUMARATE 25 MG TAB PEG SCH (09:50)
[2023-04-24] MEDS: GABAPENTIN 100 MG CAP PO SCH ×2 (09:51→16:45)
[2023-04-24] MEDS: OYST-CAL-D 500MG TABLET PO SCH (09:51)
[2023-04-24] MEDS: METOPROLOL TARTRATE 50 MG TAB PEG SCH ×2 (09:51→16:46)
[2023-04-24] MEDS: LEVOTHYROXINE SODIUM 112 MCG TAB PEG SCH (09:54)
[2023-04-24] MEDS ORDERED: ONDANSETRON HCL 4 MG ORAL DISINTEGRATING TAB PO PRN (13:00)
[2023-04-24] MEDS: SODIUM CHLORIDE 0.9% 1000ML 1,000 ML IV SCH ×2 (16:45)
[2023-04-24] MEDS: QUETIAPINE FUMARATE 100 MG TAB PEG SCH (20:13)
[2023-04-24] MEDS: SIMVASTATIN 20 MG TAB PEG SCH (20:13)
[2023-04-24] MEDS: HYDRALAZINE HCL 20 MG/ML VIAL IV PRN (22:09)
[2023-04-25] VITALS (9 sets, daily range): BP systolic 115–157; BP diastolic 67–85; PULSE 71–85; RESP 18–22; TEMP 97.3–98.2; O2SAT 98–100
[2023-04-25] MEDS: SODIUM CHLORIDE 0.9% 1000ML 1,000 ML IV SCH ×2 (02:00→18:40)
[2023-04-25] MEDS: LEVOTHYROXINE SODIUM 112 MCG TAB PEG SCH (05:20)
[2023-04-25] MEDS: LEVOTHYROXINE SODIUM 25 MCG TABLET PO SCH (05:20)
[2023-04-25 05:51] LABS: BASOPHILS % 0.4 % (0.0-1.0); EOSINOPHILS # (AUTO) 0.5 (0.0-0.4); EOSINOPHILS % 7.2 % (0.0-6.0); HEMATOCRIT 24.4 % (34.2-44.1); HEMOGLOBIN 7.5 g/dL (12.0-16.0); LYMPHOCYTES # (AUTO) 0.9 (1.0-3.2); LYMPHOCYTES % 12.1 % (18.0-39.1); MEAN CORPUSCULAR HEMOGLOBIN 31.8 pg (28-32); MEAN CORPUSCULAR HGB CONC 30.7 g/dL (31-35); MONOCYTES # (AUTO) 0.5 (0.2-0.8); MONOCYTES % 6.3 % (4.4-11.3); NEUTROPHILS # (AUTO) 5.3 (2.1-6.9); NEUTROPHILS % 72.5 % (38.7-80.0); PLATELET COUNT 161 x10e3/uL (140-360); RED BLOOD COUNT 2.36 x10e6/uL (3.6-5.1); RED CELL DISTRIBUTION WIDTH 20.9 % (11.7-14.4); WHITE BLOOD COUNT 7.27 x10e3/uL (4.8-10.8)
[2023-04-25 06:01] LABS: MEAN CORPUSCULAR VOLUME 103.4 fL (81-99)
[2023-04-25 06:14] LABS: ALBUMIN 1.1 g/dL (3.5-5.0); ALBUMIN/GLOBULIN RATIO 0.2 (0.8-2.0); ANION GAP 8.8 mmol/L (8-16); CALCIUM 7.1 mg/dL (8.4-10.2); CREATININE, SERUM 0.79 mg/dL (0.57-1.11); MAGNESIUM 1.8 MG/DL (1.3-2.1); PHOSPHORUS 2.5 MG/DL (2.3-4.7); POTASSIUM 3.8 mmol/L (3.5-5.1)
[2023-04-25] MEDS: HYDRALAZINE HCL 20 MG/ML VIAL IV PRN (06:28)
[2023-04-25] MEDS: SENNOSIDES 8.6 MG TAB PO SCH (09:00)
[2023-04-25] MEDS: DOCUSATE SODIUM 100 MG CAP PO SCH (09:00)
[2023-04-25] MEDS: FOLIC ACID 1 MG TAB PO SCH (10:03)
[2023-04-25] MEDS: GABAPENTIN 100 MG CAP PO SCH ×2 (10:04→16:45)
[2023-04-25] MEDS: AMLODIPINE BESYLATE 5 MG TAB PO SCH (10:04)
[2023-04-25] MEDS: FLUCONAZOLE 100 MG TAB PO SCH (10:04)
[2023-04-25] MEDS: METOPROLOL TARTRATE 50 MG TAB PEG SCH ×2 (10:05→16:46)
[2023-04-25] MEDS: QUETIAPINE FUMARATE 25 MG TAB PEG SCH (10:11)
[2023-04-25] MEDS: OYST-CAL-D 500MG TABLET PO SCH (10:11)
[2023-04-25] MEDS: QUETIAPINE FUMARATE 100 MG TAB PEG SCH (20:34)
[2023-04-25] MEDS: SIMVASTATIN 20 MG TAB PEG SCH (20:34)
[2023-04-26] VITALS (8 sets, daily range): BP systolic 126–155; BP diastolic 61–81; PULSE 68–82; RESP 16–20; TEMP 97–98.2; O2SAT 95–100
[2023-04-26] MEDS: LEVOTHYROXINE SODIUM 25 MCG TABLET PO SCH (05:14)
[2023-04-26] MEDS: SODIUM CHLORIDE 0.9% 1000ML 1,000 ML IV SCH (05:14)
[2023-04-26] MEDS: LEVOTHYROXINE SODIUM 112 MCG TAB PEG SCH (05:14)
[2023-04-26 06:27] LABS: BASOPHILS % 0.5 % (0.0-1.0); EOSINOPHILS # (AUTO) 0.5 (0.0-0.4); EOSINOPHILS % 8.5 % (0.0-6.0); HEMATOCRIT 23.8 % (34.2-44.1); HEMOGLOBIN 7.1 g/dL (12.0-16.0); LYMPHOCYTES # (AUTO) 0.8 (1.0-3.2); MEAN CORPUSCULAR HEMOGLOBIN 31.6 pg (28-32); MEAN CORPUSCULAR HGB CONC 29.8 g/dL (31-35); MEAN CORPUSCULAR VOLUME 105.8 fL (81-99); MONOCYTES # (AUTO) 0.4 (0.2-0.8); MONOCYTES % 7.2 % (4.4-11.3); NEUTROPHILS # (AUTO) 4.1 (2.1-6.9); NEUTROPHILS % 68.3 % (38.7-80.0); PLATELET COUNT 135 x10e3/uL (140-360); RED BLOOD COUNT 2.25 x10e6/uL (3.6-5.1); RED CELL DISTRIBUTION WIDTH 20.9 % (11.7-14.4)
[2023-04-26 06:41] LABS: ALBUMIN 1.1 g/dL (3.5-5.0); ALBUMIN/GLOBULIN RATIO 0.2 (0.8-2.0); ANION GAP 9.5 mmol/L (8-16); CREATININE, SERUM 0.8 mg/dL (0.57-1.11); POTASSIUM 3.5 mmol/L (3.5-5.1)
[2023-04-26] MEDS ORDERED: SODIUM CHLORIDE 0.9% 250ML 250 ML IV ONE (08:15)
[2023-04-26] MEDS: METOPROLOL TARTRATE 50 MG TAB PEG SCH ×2 (08:54→16:52)
[2023-04-26] MEDS: FOLIC ACID 1 MG TAB PO SCH (08:55)
[2023-04-26] MEDS: FLUCONAZOLE 100 MG TAB PO SCH (08:55)
[2023-04-26] MEDS: DOCUSATE SODIUM 100 MG CAP PO SCH (08:55)
[2023-04-26] MEDS: QUETIAPINE FUMARATE 25 MG TAB PEG SCH (08:55)
[2023-04-26] MEDS: SENNOSIDES 8.6 MG TAB PO SCH (08:56)
[2023-04-26] MEDS: AMLODIPINE BESYLATE 5 MG TAB PO SCH (08:56)
[2023-04-26] MEDS: OYST-CAL-D 500MG TABLET PO SCH (08:56)
[2023-04-26] MEDS: GABAPENTIN 100 MG CAP PO SCH ×2 (08:56→16:52)
[2023-04-26] MEDS ORDERED: BUPIVACAINE 0.25% 30ML SDV ONE (11:22)
[2023-04-26] MEDS ORDERED: LIDOCAINE 2%/ EPINEPHRINE 20ML MDV ONE (11:22)
[2023-04-26] MEDS: SIMVASTATIN 20 MG TAB PEG SCH (20:57)
[2023-04-26] MEDS: QUETIAPINE FUMARATE 100 MG TAB PEG SCH (20:57)
[2023-04-27] VITALS (9 sets, daily range): BP systolic 133–180; BP diastolic 68–97; PULSE 72–98; RESP 16–20; TEMP 97–98.8; O2SAT 96–100
[2023-04-27] MEDS: SODIUM CHLORIDE 0.9% 1000ML 1,000 ML IV SCH ×2 (00:46→21:44)
[2023-04-27 05:39] LABS: BASOPHILS % 0.5 % (0.0-1.0); EOSINOPHILS # (AUTO) 0.6 (0.0-0.4); HEMOGLOBIN 6.5 g/dL (12.0-16.0); LYMPHOCYTES # (AUTO) 0.9 (1.0-3.2); LYMPHOCYTES % 14.5 % (18.0-39.1); MEAN CORPUSCULAR HEMOGLOBIN 31.9 pg (28-32); MEAN CORPUSCULAR HGB CONC 31.1 g/dL (31-35); MEAN CORPUSCULAR VOLUME 102.5 fL (81-99); MONOCYTES # (AUTO) 0.4 (0.2-0.8); MONOCYTES % 6.2 % (4.4-11.3); NEUTROPHILS # (AUTO) 4.2 (2.1-6.9); NEUTROPHILS % 68.7 % (38.7-80.0); PLATELET COUNT 130 x10e3/uL (140-360); RED BLOOD COUNT 2.04 x10e6/uL (3.6-5.1); RED CELL DISTRIBUTION WIDTH 21.2 % (11.7-14.4); WHITE BLOOD COUNT 6.14 x10e3/uL (4.8-10.8)
[2023-04-27 05:57] LABS: HEMATOCRIT 20.9 % (34.2-44.1)
[2023-04-27 06:03] LABS: ALBUMIN 1.1 g/dL (3.5-5.0); ALBUMIN/GLOBULIN RATIO 0.2 (0.8-2.0); ANION GAP 9.4 mmol/L (8-16); CREATININE, SERUM 0.82 mg/dL (0.57-1.11); MAGNESIUM 1.6 MG/DL (1.3-2.1); POTASSIUM 3.4 mmol/L (3.5-5.1)
[2023-04-27 06:07] LABS: CALCIUM 6.8 mg/dL (8.4-10.2)
[2023-04-27] MEDS: LEVOTHYROXINE SODIUM 112 MCG TAB PEG SCH (06:08)
[2023-04-27] MEDS: LEVOTHYROXINE SODIUM 25 MCG TABLET PO SCH (06:08)
[2023-04-27 08:27] LABS: PLATELET ESTIMATE SLIGHTLY DECREASED
[2023-04-27 08:28] LABS: PLATELET MORPHOLOGY COMMENT NORMAL; RBC MORPHOLOGY COMMENT NORMAL
[2023-04-27] MEDS: SENNOSIDES 8.6 MG TAB PO SCH (08:51)
[2023-04-27] MEDS: OYST-CAL-D 500MG TABLET PO SCH (08:51)
[2023-04-27] MEDS: METOPROLOL TARTRATE 50 MG TAB PEG SCH ×2 (08:52→17:51)
[2023-04-27] MEDS: QUETIAPINE FUMARATE 25 MG TAB PEG SCH (08:52)
[2023-04-27] MEDS: FLUCONAZOLE 100 MG TAB PO SCH (08:52)
[2023-04-27] MEDS: GABAPENTIN 100 MG CAP PO SCH ×2 (08:52→17:50)
[2023-04-27] MEDS: AMLODIPINE BESYLATE 5 MG TAB PO SCH (08:52)
[2023-04-27] MEDS: DOCUSATE SODIUM 100 MG CAP PO SCH (08:52)
[2023-04-27] MEDS: FOLIC ACID 1 MG TAB PO SCH (08:52)
[2023-04-27] MEDS ORDERED: SODIUM CHLORIDE 0.9% 250ML 250 ML ONE (09:48)
[2023-04-27] MEDS ORDERED: MAGNESIUM SULFATE 2GM/50ML 50 ML IV ONE (10:00)
[2023-04-27] MEDS ORDERED: POTASSIUM CHLORIDE 20 MEQ TAB CR PO ONE (10:00)
[2023-04-27] MEDS ORDERED: OYST-CAL-D 500MG TABLET PO SCH (10:00)
[2023-04-27] MEDS ORDERED: SODIUM CHLORIDE 0.9% 250ML 250 ML IV ONE (10:15)
[2023-04-27] MEDS ORDERED: DIPHENHYDRAMINE HCL INJ 50 MG/ML VIAL IV ONE (10:15)
[2023-04-27] MEDS: HYDRALAZINE HCL 20 MG/ML VIAL IV PRN (13:18)
[2023-04-27] MEDS: SIMVASTATIN 20 MG TAB PEG SCH (21:45)
[2023-04-27] MEDS: QUETIAPINE FUMARATE 100 MG TAB PEG SCH (21:45)
[2023-04-28] VITALS (11 sets, daily range): BP systolic 146–191; BP diastolic 70–88; PULSE 80–94; RESP 16–20; TEMP 97.9–98.7; O2SAT 95–100
[2023-04-28 05:30] LABS: BASOPHILS % 0.2 % (0.0-1.0); EOSINOPHILS # (AUTO) 0.6 (0.0-0.4); EOSINOPHILS % 7.4 % (0.0-6.0); HEMATOCRIT 29.1 % (34.2-44.1); HEMOGLOBIN 9.4 g/dL (12.0-16.0); LYMPHOCYTES # (AUTO) 1.3 (1.0-3.2); LYMPHOCYTES % 15.5 % (18.0-39.1); MEAN CORPUSCULAR HEMOGLOBIN 31.3 pg (28-32); MEAN CORPUSCULAR HGB CONC 32.3 g/dL (31-35); MONOCYTES # (AUTO) 0.6 (0.2-0.8); MONOCYTES % 6.9 % (4.4-11.3); NEUTROPHILS # (AUTO) 5.7 (2.1-6.9); NEUTROPHILS % 68.6 % (38.7-80.0); PLATELET COUNT 108 x10e3/uL (140-360); RED CELL DISTRIBUTION WIDTH 19.9 % (11.7-14.4); WHITE BLOOD COUNT 8.28 x10e3/uL (4.8-10.8)
[2023-04-28] MEDS: LEVOTHYROXINE SODIUM 112 MCG TAB PEG SCH (05:39)
[2023-04-28] MEDS: LEVOTHYROXINE SODIUM 25 MCG TABLET PO SCH (05:39)
[2023-04-28 06:02] LABS: ALBUMIN 1.1 g/dL (3.5-5.0); ALBUMIN/GLOBULIN RATIO 0.2 (0.8-2.0); CREATININE, SERUM 0.87 mg/dL (0.57-1.11); MAGNESIUM 1.6 MG/DL (1.3-2.1)
[2023-04-28 06:21] LABS: ANION GAP 6.8 mmol/L (8-16); POTASSIUM 3.8 mmol/L (3.5-5.1)
[2023-04-28] MEDS: SENNOSIDES 8.6 MG TAB PO SCH (09:00)
[2023-04-28] MEDS: AMLODIPINE BESYLATE 5 MG TAB PO SCH (10:11)
[2023-04-28] MEDS: OYST-CAL-D 500MG TABLET PO SCH (10:11)
[2023-04-28] MEDS: FLUCONAZOLE 100 MG TAB PO SCH (10:11)
[2023-04-28] MEDS: GABAPENTIN 100 MG CAP PO SCH ×2 (10:12→16:43)
[2023-04-28] MEDS: QUETIAPINE FUMARATE 25 MG TAB PEG SCH (10:12)
[2023-04-28] MEDS: METOPROLOL TARTRATE 50 MG TAB PEG SCH ×2 (10:12→16:43)
[2023-04-28] MEDS: DOCUSATE SODIUM 100 MG CAP PO SCH (10:12)
[2023-04-28] MEDS: FOLIC ACID 1 MG TAB PO SCH (10:13)
[2023-04-28] MEDS ORDERED: DAPTOMYCIN 500mg 10ML 300 MG in SODIUM CHLORIDE 0.9% 100 ML IV SCH (11:00)
[2023-04-28] MEDS: SODIUM CHLORIDE 0.9% 1000ML 1,000 ML IV SCH (13:32)
[2023-04-28] MEDS: ACETAMINOPHEN 325 MG TAB PO PRN ×2 (16:44→20:59)
[2023-04-28] MEDS ORDERED: CALCIUM CARBONATE 500 MG CHEWABLE TABS PO PRN (18:15)
[2023-04-28] MEDS: QUETIAPINE FUMARATE 100 MG TAB PEG SCH (20:58)
[2023-04-29] VITALS (9 sets, daily range): BP systolic 104–157; BP diastolic 52–91; PULSE 79–107; RESP 16–21; TEMP 97.9–98.7; O2SAT 97–100
[2023-04-29] MEDS: LEVOTHYROXINE SODIUM 25 MCG TABLET PO SCH (05:56)
[2023-04-29] MEDS: LEVOTHYROXINE SODIUM 112 MCG TAB PEG SCH (05:56)
[2023-04-29] MEDS: SODIUM CHLORIDE 0.9% 1000ML 1,000 ML IV SCH (06:00)
[2023-04-29 06:51] LABS: BASOPHILS % 0.5 % (0.0-1.0); EOSINOPHILS # (AUTO) 0.6 (0.0-0.4); EOSINOPHILS % 8.7 % (0.0-6.0); HEMOGLOBIN 8.9 g/dL (12.0-16.0); LYMPHOCYTES % 15.4 % (18.0-39.1); MEAN CORPUSCULAR HEMOGLOBIN 31.3 pg (28-32); MEAN CORPUSCULAR HGB CONC 31.8 g/dL (31-35); MEAN CORPUSCULAR VOLUME 98.6 fL (81-99); MONOCYTES # (AUTO) 0.4 (0.2-0.8); MONOCYTES % 5.9 % (4.4-11.3); NEUTROPHILS # (AUTO) 4.3 (2.1-6.9); NEUTROPHILS % 68.2 % (38.7-80.0); PLATELET COUNT 89 x10e3/uL (140-360); RED BLOOD COUNT 2.84 x10e6/uL (3.6-5.1); RED CELL DISTRIBUTION WIDTH 20.6 % (11.7-14.4); WHITE BLOOD COUNT 6.29 x10e3/uL (4.8-10.8)
[2023-04-29 07:20] LABS: ALBUMIN 1.1 g/dL (3.5-5.0); ALBUMIN/GLOBULIN RATIO 0.2 (0.8-2.0); ANION GAP 6.2 mmol/L (8-16); CALCIUM 7.1 mg/dL (8.4-10.2); CREATININE, SERUM 0.81 mg/dL (0.57-1.11); MAGNESIUM 1.6 MG/DL (1.3-2.1); POTASSIUM 3.2 mmol/L (3.5-5.1)
[2023-04-29] MEDS: SENNOSIDES 8.6 MG TAB PO SCH (09:00)
[2023-04-29] MEDS: DOCUSATE SODIUM 100 MG CAP PO SCH (09:00)
[2023-04-29] MEDS: FLUCONAZOLE 100 MG TAB PO SCH (10:26)
[2023-04-29] MEDS: OYST-CAL-D 500MG TABLET PO SCH (10:26)
[2023-04-29] MEDS: CEFTRIAXONE 2 GM in SODIUM CHLORIDE 0.9% 100 ML IV SCH (10:26)
[2023-04-29] MEDS: GABAPENTIN 100 MG CAP PO SCH ×2 (10:29→18:03)
[2023-04-29] MEDS: QUETIAPINE FUMARATE 25 MG TAB PEG SCH (10:30)
[2023-04-29] MEDS: METOPROLOL TARTRATE 50 MG TAB PEG SCH ×2 (10:30→18:04)
[2023-04-29] MEDS: AMLODIPINE BESYLATE 5 MG TAB PO SCH (10:30)
[2023-04-29] MEDS: FOLIC ACID 1 MG TAB PO SCH (10:30)
[2023-04-29] MEDS ORDERED: POTASSIUM CHLORIDE 20 MEQ TAB CR PO STA (11:07)
[2023-04-29] MEDS: LINEZOLID 600 MG TAB PO SCH (18:03)
[2023-04-29] MEDS ORDERED: METHENAMINE HIPP1 GM PO (19:53)
[2023-04-29] MEDS: QUETIAPINE FUMARATE 100 MG TAB PEG SCH (21:29)
[2023-04-29] MEDS ORDERED: FUROSEMIDE INJ 10 MG/ML 2 ML VIAL IV ONE (23:15)
[2023-04-30] VITALS (10 sets, daily range): BP systolic 129–162; BP diastolic 59–72; PULSE 74–92; RESP 16–22; TEMP 97.9–98.9; O2SAT 97–100
[2023-04-30] MEDS: LEVOTHYROXINE SODIUM 25 MCG TABLET PO SCH (05:23)
[2023-04-30] MEDS: LEVOTHYROXINE SODIUM 112 MCG TAB PEG SCH (05:23)
[2023-04-30 06:06] LABS: BASOPHILS % 0.5 % (0.0-1.0); EOSINOPHILS # (AUTO) 0.6 (0.0-0.4); EOSINOPHILS % 9.7 % (0.0-6.0); HEMATOCRIT 29.3 % (34.2-44.1); HEMOGLOBIN 9.4 g/dL (12.0-16.0); LYMPHOCYTES # (AUTO) 0.8 (1.0-3.2); MEAN CORPUSCULAR HGB CONC 32.1 g/dL (31-35); MEAN CORPUSCULAR VOLUME 99.7 fL (81-99); MONOCYTES # (AUTO) 0.4 (0.2-0.8); MONOCYTES % 5.7 % (4.4-11.3); NEUTROPHILS # (AUTO) 4.6 (2.1-6.9); NEUTROPHILS % 70.2 % (38.7-80.0); PLATELET COUNT 92 x10e3/uL (140-360); RED BLOOD COUNT 2.94 x10e6/uL (3.6-5.1); RED CELL DISTRIBUTION WIDTH 20.4 % (11.7-14.4); WHITE BLOOD COUNT 6.48 x10e3/uL (4.8-10.8)
[2023-04-30 06:31] LABS: ALBUMIN 1.1 g/dL (3.5-5.0); ALBUMIN/GLOBULIN RATIO 0.2 (0.8-2.0); ANION GAP 8.9 mmol/L (8-16); CALCIUM 7.7 mg/dL (8.4-10.2); CREATININE, SERUM 0.91 mg/dL (0.57-1.11); POTASSIUM 3.9 mmol/L (3.5-5.1)
[2023-04-30] MEDS: OYST-CAL-D 500MG TABLET PO SCH (09:44)
[2023-04-30] MEDS: CEFTRIAXONE 2 GM in SODIUM CHLORIDE 0.9% 100 ML IV SCH (09:44)
[2023-04-30] MEDS: GABAPENTIN 100 MG CAP PO SCH ×2 (09:44→17:21)
[2023-04-30] MEDS: DOCUSATE SODIUM 100 MG CAP PO SCH (09:44)
[2023-04-30] MEDS: METOPROLOL TARTRATE 50 MG TAB PEG SCH ×2 (09:44→17:22)
[2023-04-30] MEDS: LINEZOLID 600 MG TAB PO SCH ×2 (09:44→17:21)
[2023-04-30] MEDS: QUETIAPINE FUMARATE 25 MG TAB PEG SCH (09:45)
[2023-04-30] MEDS: AMLODIPINE BESYLATE 5 MG TAB PO SCH (09:45)
[2023-04-30] MEDS: FOLIC ACID 1 MG TAB PO SCH (09:45)
[2023-04-30] MEDS: SENNOSIDES 8.6 MG TAB PO SCH (09:45)
[2023-04-30] MEDS: FUROSEMIDE INJ 10 MG/ML 2 ML VIAL IV SCH ×2 (17:00→17:21)
[2023-04-30] MEDS: QUETIAPINE FUMARATE 100 MG TAB PEG SCH (21:34)
[2023-05-01] VITALS (10 sets, daily range): BP systolic 136–176; BP diastolic 63–84; PULSE 76–92; RESP 16–20; TEMP 98–98.9; O2SAT 96–100
[2023-05-01 05:10] LABS: BASOPHILS % 0.4 % (0.0-1.0); EOSINOPHILS # (AUTO) 0.7 (0.0-0.4); EOSINOPHILS % 9.7 % (0.0-6.0); HEMATOCRIT 29.1 % (34.2-44.1); HEMOGLOBIN 9.1 g/dL (12.0-16.0); LYMPHOCYTES # (AUTO) 0.9 (1.0-3.2); LYMPHOCYTES % 12.4 % (18.0-39.1); MEAN CORPUSCULAR HEMOGLOBIN 31.7 pg (28-32); MEAN CORPUSCULAR HGB CONC 31.3 g/dL (31-35); MEAN CORPUSCULAR VOLUME 101.4 fL (81-99); MONOCYTES # (AUTO) 0.5 (0.2-0.8); MONOCYTES % 6.7 % (4.4-11.3); NEUTROPHILS # (AUTO) 4.9 (2.1-6.9); NEUTROPHILS % 69.9 % (38.7-80.0); PLATELET COUNT 98 x10e3/uL (140-360); RED BLOOD COUNT 2.87 x10e6/uL (3.6-5.1); RED CELL DISTRIBUTION WIDTH 20.5 % (11.7-14.4); WHITE BLOOD COUNT 6.99 x10e3/uL (4.8-10.8)
[2023-05-01] MEDS: LEVOTHYROXINE SODIUM 112 MCG TAB PEG SCH (05:30)
[2023-05-01] MEDS: LEVOTHYROXINE SODIUM 25 MCG TABLET PO SCH (05:30)
[2023-05-01 05:39] LABS: ALBUMIN/GLOBULIN RATIO 0.2 (0.8-2.0); ANION GAP 8.9 mmol/L (8-16); CALCIUM 7.6 mg/dL (8.4-10.2); CREATININE, SERUM 0.99 mg/dL (0.57-1.11); MAGNESIUM 1.4 MG/DL (1.3-2.1); PHOSPHORUS 3.3 MG/DL (2.3-4.7); POTASSIUM 3.9 mmol/L (3.5-5.1)
[2023-05-01] MEDS: QUETIAPINE FUMARATE 25 MG TAB PEG SCH (09:06)
[2023-05-01] MEDS: LINEZOLID 600 MG TAB PO SCH ×2 (09:06→17:53)
[2023-05-01] MEDS: DOCUSATE SODIUM 100 MG CAP PO SCH (09:06)
[2023-05-01] MEDS: OYST-CAL-D 500MG TABLET PO SCH (09:06)
[2023-05-01] MEDS: GABAPENTIN 100 MG CAP PO SCH ×2 (09:07→17:53)
[2023-05-01] MEDS: METOPROLOL TARTRATE 50 MG TAB PEG SCH ×2 (09:07→17:53)
[2023-05-01] MEDS: SENNOSIDES 8.6 MG TAB PO SCH (09:07)
[2023-05-01] MEDS: AMLODIPINE BESYLATE 5 MG TAB PO SCH (09:08)
[2023-05-01] MEDS: FOLIC ACID 1 MG TAB PO SCH (09:08)
[2023-05-01] MEDS: FUROSEMIDE INJ 10 MG/ML 2 ML VIAL IV SCH ×2 (09:08→17:53)
[2023-05-01] MEDS: CEFTRIAXONE 2 GM in SODIUM CHLORIDE 0.9% 100 ML IV SCH (09:09)
[2023-05-01] MEDS ORDERED: MAGNESIUM SULFATE 2GM/50ML 50 ML IV ONE (15:00)
[2023-05-01] MEDS: QUETIAPINE FUMARATE 100 MG TAB PEG SCH (21:42)
[2023-05-02] VITALS (7 sets, daily range): BP systolic 130–157; BP diastolic 72–86; PULSE 80–92; RESP 18–20; TEMP 97.5–98.2; O2SAT 96–100
[2023-05-02 05:21] LABS: ANION GAP 7.8 mmol/L (8-16); CALCIUM 7.7 mg/dL (8.4-10.2); CREATININE, SERUM 0.88 mg/dL (0.57-1.11); MAGNESIUM 1.7 MG/DL (1.3-2.1); POTASSIUM 3.8 mmol/L (3.5-5.1)
[2023-05-02] MEDS: LEVOTHYROXINE SODIUM 25 MCG TABLET PO SCH (06:06)
[2023-05-02] MEDS: LEVOTHYROXINE SODIUM 112 MCG TAB PEG SCH (06:06)
[2023-05-02] MEDS: SENNOSIDES 8.6 MG TAB PO SCH (09:00)
[2023-05-02] MEDS: DOCUSATE SODIUM 100 MG CAP PO SCH (09:00)
[2023-05-02] MEDS: AMLODIPINE BESYLATE 5 MG TAB PO SCH (09:25)
[2023-05-02] MEDS: OYST-CAL-D 500MG TABLET PO SCH (09:25)
[2023-05-02] MEDS: QUETIAPINE FUMARATE 25 MG TAB PEG SCH (09:25)
[2023-05-02] MEDS: GABAPENTIN 100 MG CAP PO SCH (09:25)
[2023-05-02] MEDS: FOLIC ACID 1 MG TAB PO SCH (09:25)
[2023-05-02] MEDS: LINEZOLID 600 MG TAB PO SCH (09:25)
[2023-05-02] MEDS: CEFTRIAXONE 2 GM in SODIUM CHLORIDE 0.9% 100 ML IV SCH (09:26)
[2023-05-02] MEDS: METOPROLOL TARTRATE 50 MG TAB PEG SCH (09:26)
[2023-05-02] MEDS: FUROSEMIDE INJ 10 MG/ML 2 ML VIAL IV SCH (09:26)
[2023-05-02] MEDS ORDERED: FENTANYL CITRATE/PF 100MCG/2 ML INJ IJ ONE (11:51)
[2023-05-02] MEDS ORDERED: FUROSEMIDE20 MG PO (12:28)
[2023-05-02] MEDS ORDERED: SENOKOT8.6 MG PO (12:28)
[2023-05-02] MEDS ORDERED: LEVOTHYROXINE25 MCG PO (12:28)
[2023-05-02] MEDS ORDERED: NORVASC5 MG PO (12:28)
[2023-05-02] MEDS ORDERED: PROTONIX20 MG PO (12:28)
[2023-05-02] MEDS ORDERED: Docusate Sodium PO (12:28)
[2023-05-02] MEDS ORDERED: ZYVOX600 MG PO (12:28)
[2023-05-02] MEDS ORDERED: Folic Acid PO (12:28)
[2023-05-02] MEDS ORDERED: Calcium Carbonate PO (12:28)
[2023-05-02] MEDS ORDERED: FUROSEMIDE 20 MG TAB PO SCH (17:00)
[2023-05-03] MEDS ORDERED: PANTOPRAZOLE SOD 40 MG TABEC PO SCH (07:30)
== END 2023-05-02 15:43 | DRG 862 ==
LOC: ER 20:12 → ERHOLD 04-21 00:09 → MED/SURG 04-21 12:00 → MED/SURG2 04-22 13:20
PROVIDERS: ADMIT Internal Medicine; ATTEND Internal Medicine
PROC: 02HV33Z Insertion of Infusion Device into Superior Vena Cava, Percutaneous Approach (ICD-10-PCS; principal; 2023-04-25)
PROC: 0T9B80Z Drainage of Bladder with Drainage Device, Via Natural or Artificial Opening Endoscopic (ICD-10-PCS; 2023-04-26)
PROC: BT141ZZ Fluoroscopy of Kidneys, Ureters and Bladder using Low Osmolar Contrast (ICD-10-PCS; 2023-04-26)
PROC: 30233N1 Transfusion of Nonautologous Red Blood Cells into Peripheral Vein, Percutaneous Approach (ICD-10-PCS; 2023-04-27)
DX: T81.41XA Infection following a procedure, superficial incisional surgical site, initial encounter (principal); R53.2 Functional quadriplegia; T81.30XA Disruption of wound, unspecified, initial encounter; Z16.21 Resistance to vancomycin; I13.0 Hypertensive heart and chronic kidney disease with heart failure and stage 1 through stage 4 chronic kidney disease, or unspecified chronic kidney disease; K76.6 Portal hypertension; N13.30 Unspecified hydronephrosis; B37.49 Other urogenital candidiasis; B96.20 Unspecified Escherichia coli [E. coli] as the cause of diseases classified elsewhere; I50.9 Heart failure, unspecified; N18.9 Chronic kidney disease, unspecified; I25.2 Old myocardial infarction; E78.5 Hyperlipidemia, unspecified; D63.1 Anemia in chronic kidney disease; C50.912 Malignant neoplasm of unspecified site of left female breast; F03.90 Unspecified dementia, unspecified severity, without behavioral disturbance, psychotic disturbance, mood disturbance, and anxiety; F31.9 Bipolar disorder, unspecified; R33.9 Retention of urine, unspecified; M32.9 Systemic lupus erythematosus, unspecified; R16.1 Splenomegaly, not elsewhere classified; E03.9 Hypothyroidism, unspecified; R13.10 Dysphagia, unspecified; E83.51 Hypocalcemia; R80.9 Proteinuria, unspecified; K75.81 Nonalcoholic steatohepatitis (NASH); K74.60 Unspecified cirrhosis of liver; L08.9 Local infection of the skin and subcutaneous tissue, unspecified; R19.7 Diarrhea, unspecified; D52.0 Dietary folate deficiency anemia; E87.6 Hypokalemia; R31.29 Other microscopic hematuria; N31.9 Neuromuscular dysfunction of bladder, unspecified; L89.610 Pressure ulcer of right heel, unstageable; Z20.822 Contact with and (suspected) exposure to COVID-19; Z93.1 Gastrostomy status; Z63.9 Problem related to primary support group, unspecified; B99.8 Other infectious disease
CPT/HCPCS: 0223U; 36415; 51700; 71045; 74177; 74420; 80048; 80053; 81001; 82550; 82607; 82728; 82746; 82948; 83540; 83630; 83690; 83735; 83993; 84100; 84132; 84439; 84443; 84466; 84484; 85025; 86850; 86870; 86880; 86900; 86905; 86920; 86922; 87045; 87071; 87086; 87177; 87186; 87205; 87328; 93005; 93970; 94799; 96360; 99001; 99252; 99284; C1758; J0696; J1940; J2001; J2270; J2405; J2543; J3475; J7030; J7050; J7799; P9016; Q9967